=== PATIENT | male | born 1965 | race Caucasian/White ===

== ENCOUNTER 2020-10-24 17:58 | Inpatient (IN) | payer OTHER, SELFPAY ==
[~2020-10-24] VITALS: Ht 177.8 cm; Wt 106.9 kg
[2020-10-24] MEDS ORDERED: BUDESONIDE 180MCG INHALER (PULMICORT FLEXHALER) INH SCH (20:00)
[2020-10-24 20:40] VITALS: BP 129/85
[2020-10-24 20:45] VITALS: BP 129/85
[2020-10-24] MEDS ORDERED: LEVALBUTEROL 1.25 MG/0.5 ML CONCENTRATE NEB INH PRN (20:45)
[2020-10-24] MEDS ORDERED: LABETALOL 100MG TAB PO ONE (20:45)
[2020-10-24 21:22] LABS: ABG O2 SATURATION 95.8 % (95.0-99.0); ABG PARTIAL PRESSURE CO2 42.3 mmHg (35.0-45.0); ABG STANDARD HCO3 20.4 MEQ/L (22.0-26.0); ABG TOTAL CO2 22.3 MEQ/L (22.0-29.0); ABG pH (ARTERIAL) 7.314 UNITS (7.350-7.450)
[2020-10-24 22:01] VITALS: BP 94/69
[2020-10-24 22:19] LABS: BASO % 0.4 % (0.0-1.0); HEMATOCRIT 36.8 % (42.0-52.0); HEMOGLOBIN 12.7 g/dl (13.5-17.5); LYMPH # 0.2 10^3/uL (1.5-5.0); LYMPH % 2.1 % (24.0-44.0); MEAN CORPUSCULAR HEMOGLOBIN 35.1 pg (27.0-33.0); MEAN CORPUSCULAR HGB CONC 34.5 g/dl (32.0-36.5); MEAN CORPUSCULAR VOLUME 101.7 fl (80.0-96.0); MONO # 0.2 10^3/uL (0.0-0.8); NEUTROPHILS # 9.7 10^3/uL (1.5-8.5); NEUTROPHILS % 94.2 % (36.0-66.0); PLATELET COUNT, AUTOMATED 167 10^3/uL (150-450); RED BLOOD COUNT 3.62 10^6/uL (4.30-6.10); WHITE BLOOD COUNT 10.3 10^3/uL (4.0-10.0)
--- NOTE | 2020-10-24 22:21 | HPEPDOC ---
[facility] Medical History & Physical Date of Admission Oct 24, 2020 Date of Service: Oct 24, 2020 History and Physical CHIEF COMPLAINT: Shortness of breath for a week, worse in the past 4 days HISTORY OF PRESENT ILLNESS: 54-year-old chronic alcoholic with history of hypertension, COPD, not oxygen or steroid dependent, BPH, cataract surgery, chronic back pain with back surgery 15 years ago, presented to [facility] emergency room with shortness of breath for the past week, Dyspnea on exertion, unable to walk more than 30-40 feet without having to stop to take a breath, gait instability, difficulty ambulating due to fatigue and weakness, increased lower extremity edema, pleuritic chest pain, dry cough, scant white, thick sputum and chills, and 1 day history of diarrhea 4-5 times on Saturday after receiving his Covid vaccinethe day before. He denies any fever, chest pressure or tightness, lightheadedness, dizziness nausea, vomiting or constipation. He has no prior history DVT, pulmonary embolism or family history of hypercoagulable state. He denies paroxysmal nocturnal dyspnea 2-3 pillow orthopnea, weight gain, or prior history of CAD, CA or congestive heart failure. Dyspnea is worse with exertion, better when he stays still. Despite using his budesonide, he has had no relief. No prior episode of dyspnea with exertion in the past. Patient denies bright red blood per rectum, melena, black tarry stools, no recent sore throat or nonsteroidal anti-inflammatory use. He complains of dysuria without urgency or frequency and says "I think after prostatitis." In the emergency room at [facility], patient was found to be tachycardic sinus rhythm, ventricular rate of 130-140, hypertensive, blood pressure 158/128, hypoxic, requiring 100% nonrebreather, saturating 91%. CT chest showed bilateral pulmonary embolism, groundglass opacities. Coronavirus 19 was negative. Patient was wheezing and was given intravenous Solu-Medrol, intravenous Zosyn, nebulizer, Lovenox 1 mg/kg renally dosed at 100 mg subcutaneous 1 dose. Troponin negative. EKG without acute ST-T wave changes. Patient was transferred to [facility] for left lower lobe pneumonia, bilateral pulmonary embolism, acute alcohol withdrawal, last drink was yesterday, acute hypoxic respiratory failure, COPD exacerbation, and acute kidney injury with creatinine of 2. PAST MEDICAL HISTORY: chronic alcoholic with history of hypertension, COPD, not oxygen or steroid dependent, BPH, OA hip, obesity PAST SURGICAL HISTORY: cataract surgery, chronic back pain with back surgery 15 years ago SOCIAL HISTORY: Full code. Luz Maria healthcare proxy [phone]. Drinks rum every day, one pack of cigarettes since the age of 39. More than [id number] history of smoking. No recreational drug use. Currently on disability. 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 FAMILY HISTORY: Father , had cataract mother alive with glaucoma and cataracts. Sister with thyroid problems ALLERGIES: Please see below. REVIEW OF SYSTEMS: 10 point review of systems negative aside from positive findings on HPI HOME MEDICATIONS: Please see below. PHYSICAL EXAMINATION: VITAL SIGNS: See below GENERAL APPEARANCE: Obese, awake, alert, oriented 3, answering questions appropriately. Slight conversational dyspnea but able to complete sentences. No use of respiratory accessory muscles Slightly tremulous with left hand shaking and since putting a cup on the bedside tray HEENT:Face is symmetric. Tongue is midline. , No JVD, no thyromegaly. Moist mucousmembranes, no cervical lymphadenopathy. No stridor. No subcutaneous emphysema CARDIOVASCULAR: S1, S2, sinus tachycardia, no murmurs, rubs or gallops LUNGS: Diminished, prolonged expiration, bilateral wheezing, scattered crackles at bilateral bases., Egophony and Slight increase in tactile fremitus at the left base ABDOMEN: Obese, soft, nontender, nondistended, positive bowel sounds 4 quadrants. No CVA tenderness bilaterally EXTREMITIES: 2+ pitting edema to the sacrum LABORATORY DATA: See below. IMAGING: [facility] CT chest: b/l PE, ground glass tree in bud opacities. MICROBIOLOGY: Please see below. ASSESSMENT/PLAN: 54-year-old chronic alcoholic with history of hypertension, COPD, not oxygen or steroid dependent, BPH, cataract surgery, chronic back pain with back surgery 15 years ago, presented to [facility] emergency room with shortness of breath for the past week, Dyspnea on exertion, unable to walk more than 30-40 feet without having to stop to take a breath, gait instability, difficulty ambulating due to fatigue and weakness, increased lower extremity edema, pleuritic chest pain, dry cough, scant white, thick sputum and chills, and 1 day history of diarrhea 4-5 times on [place] after receiving his Covid vaccinethe day before. He denies any fever, chest pressure or tightness, lightheadedness, dizziness nausea, vomiting or constipation. He has no prior history DVT, pulmonary embolism or family history of hypercoagulable state. He denies paroxysmal nocturnal dyspnea 2-3 pillow orthopnea, weight gain, or prior history of CAD, CA or congestive heart failure. Dyspnea is worse with exertion, better when he stays still. Despite using his budesonide, he has had no relief. No prior episode of dyspnea with exertion in the past. Patient denies bright red blood per rectum, melena, black tarry stools, no recent sore throat or nonsteroidal anti-inflammatory use. He complains of dysuria without urgency or frequency and says "I think after prostatitis." In the emergency room at [facility], patient was found to be tachycardic sinus rhythm, ventricular rate of 130-140, hypertensive, blood pressure 158/128, hypoxic, requiring 100% nonrebreather, saturating 91%. CT chest showed bilateral pulmonary embolism, groundglass opacities. Coronavirus 19 was negative. Patient was wheezing and was given intravenous Solu-Medrol, intravenous Zosyn, nebulizer, Lovenox 1 mg/kg renally dosed at 100 mg subcutaneous 1 dose. Troponin negative. EKG without acute ST-T wave changes. Patient was transferred to [facility] for left lower lobe pneumonia, bilateral pulmonary embolism, acute alcohol withdrawal, last drink was yesterday, acute hypoxic respiratory failure, COPD exacerbation, and acute kidney injury with creatinine of 2. Acute hypoxic respiratory failure secondary to PE, left lower lobe pneumonia , and acute COPD exacerbation -Titrate oxygen to greater than 90%. Treat underlying pneumonia with IV Zosyn. Check MRSA screen, sputum culture and sensitivity. 2 sets of blood culture, urine Legionella, urine streptococcal antigen -Treat PE with renally dosed Lovenox 1 mg/kg subcutaneous every 12 hours, changed to every 24 due to renal insufficiency if needed -Treat COPD with IV Solu-Medrol, IV antibiotic, Xopenex due to tachycardia. Supplemental oxygen -Check cardiac markers every 6 hourly to rule out acute coronary syndrome due to cardiovascular risk factors of age, male gender, active tobacco use, hypertension, hyperlipidemia. Bilateral pulmonary embolism -Continue on Lovenox 1 mg/kg every 12 hours subcutaneously renally dosed. -Check bilateral lower extremity Dopplers, rule out DVT -If severe pulmonary hypertension is noted on 2-dimensional echocardiogram. Patient may need an embolectomy by interventional radiology -Check 2-D echo Community acquired Left lower lobe pneumonia -Check MRSA screen, urine Legionella urine streptococcal antigen. 2 sets of blood cultures. Started on Zosyn renally dosed at [facility]. De- escalate antibiotics to a quinolone or ceftriaxone, azithromycin, if clinically improving. Supplemental oxygen to keep saturations above 90%. Nebulizer treatment as needed. Monitor for persistent diarrhea Sepsis secondary to community acquired pneumonia -Started on IV antibiotics. Due to patient complaining of dysuria also check UA, urine C&S Acute COPD exacerbation -On IV Solu-Medrol, antibiotics, nebulizer treatments, supplemental oxygen Acute alcohol withdrawal / chronic alcohol abuse -Complicating care. -[facility] protocol q4hr. -Monitor for mental status changes, respiratory distress or worsening respiratory acidosis while on Ativan for alcohol withdrawal due to history of COPD with increased risks of CO2 retention Acute kidney injury in the setting of dehydration with recent diarrhea -Check renal ultrasound. Strict I's and O's, daily weights. Patient has been given intravenous fluids due to sepsis but will need to monitor worsening respi ratory distress No recurrent diarrhea Recent Diarrhea, subsided without intervention at home Hypertension -May continue on home medications, but will have to hold for systolic pressure less than 100 mmHg Dysuria -Check UA, urine C&S BPH -Resume Flomax Active tobacco abuse -Tobacco cessation counseling. Nicotine replacement therapy. Hyponatremia -Secondary to alcohol abuse. No mental status changes. . Serial basic metabolic panel. Obesity -Check lipid profile and A1c in the morning CODE STATUS: Full code Diet: 2 g sodium DVT prophylaxis: On Lovenox Healthcare proxy: Luz Maria [phone] Vital Signs Vital Signs Date Time Temp Pulse Resp B/P (MAP) Pulse Ox O2 Delivery O2 Flow Rate FiO2 10/24/20 21:16 135 129/85 10/24/20 20:40 98.4 34 87 High Flow Cannula 6.0 Laboratory Data Labs 24H Laboratory Tests 2 10/24/20 21:12: Blood Gas Bicarbonate Standard 20.4L, Arterial Blood pH 7.314L, Arterial Blood Partial Pressure CO2 42.3, Arterial Blood Partial Pressure O2 86.0, Arterial Blood Total CO2 22.3, Arterial Blood HCO3 21.0L, Arterial Blood Base Excess - 5.0L, Arterial Blood Oxygen Saturation 95.8 10/24/20 21:45: A-FIB/CHADSVASC A-FIB History Current/History of A-Fib/PAF?: No Current PO Anticoag Therapy: No Age/Risk Factor Scoring CHADSVASC: CHADSVASC Response (Comments) Value Age Risk Factor Age < 65 years old 0 Gender Risk Factor Male 0 Hx of CHF No 0 Hx of HTN Yes 1 Hx of Stroke/TIA/or VTE No 0 Hx of Diabetes No 0 Hx of Vascular Disease No 0 Total 1 Treatment Treatment ordered: NONE RACHELE ARAUJO MD Oct 24, 2020 22:03
[2020-10-24] MEDS ORDERED: DIGOXIN INJ 0.5 MG/2 ML AMP (J1160) IV STA (22:24)
[2020-10-24 22:29] LABS: INR 1.31; PROTHROMBIN TIME 16.6 SECONDS (12.5-14.3)
[2020-10-24 22:30] LABS: PARTIAL THROMBOPLASTIN TIME 45.6 SECONDS (24.2-38.5)
[2020-10-24 22:32] LABS: D-DIMER QUANT 2160.79 ng/ml (<500)
--- NOTE | 2020-10-24 22:34 | REPVR ---
PROCEDURE INFORMATION: Exam: XR Chest Exam date and time: 10/24/20 (9:40pm) Age: 54 years old Clinical indication: SOB TECHNIQUE: Imaging protocol: Portable CXR Views: 1 view COMPARISON: No relevant prior studies available FINDINGS: Lungs: No consolidation. Mildly prominent left basilar markings. Pleural spaces: Unremarkable. No pleural effusions. No pneumothorax. Heart/Mediastinum: Unremarkable. No cardiomegaly. Bones/joints: Unremarkable. IMPRESSION: No consolidation. No pleural effusions. Mildly prominent left basilar markings. A mild LLL pneumonitis cannot be excluded. Follow-up films are suggested if symptoms continue or worsen. Electronically signed by: Nelly Zamora On 10/24/2020 22:34:32 PM
[2020-10-24] MEDS ORDERED: CALCIUM GLUCONATE 1,000 MG in D5W MINI-BAG PLUS 100 ML IV ONE (22:35)
[2020-10-24 22:39] LABS: ERYTHROCYTE SEDIMENTATION RATE 88 mm/hr (0-20)
[2020-10-24] MEDS ORDERED: SYMB16INH INH (22:40)
[2020-10-24] MEDS ORDERED: PANT40TA29 PO (22:40)
[2020-10-24] MEDS ORDERED: LABE100T4 PO (22:40)
[2020-10-24] MEDS ORDERED: FLOM0.4C39 PO (22:40)
[2020-10-24] MEDS ORDERED: LOSA100T5 PO (22:40)
[2020-10-24] MEDS ORDERED: PROAAER10 INH (22:40)
[2020-10-24] MEDS: TAMSULOSIN 0.4 MG CAP PO SCH (22:55)
[2020-10-24] MEDS: HEPARIN DRIP 25,000 UNITS in IV 1 EA IV SCH (22:58)
[2020-10-24 23:03] VITALS: BP 128/87
--- NOTE | 2020-10-24 23:05 | REPVR ---
PROCEDURE INFORMATION: Exam: US Duplex Lower Extremity Veins, Bilateral Exam date and time: 10/24/20 (10:13pm) Age: 54 years old Clinical indication: Screening exam. Possible DVT. Pulmonary embolism. TECHNIQUE: Imaging protocol: Real-time duplex ultrasound of the extremities with 2-D trejo scale, color Doppler flow and spectral waveform analysis with image documentation. Complete exam focused on the bilateral lower extremity veins. COMPARISON: No relevant prior studies available FINDINGS: Right deep veins: Unremarkable. The common femoral, femoral, proximal profunda femoral and popliteal veins are patent without thrombus. Normal Doppler waveforms. Normal compressibility and/or augmentation response. Right superficial veins: Saphenofemoral junction is patent without thrombus. Left deep veins: Unremarkable. The common femoral, femoral, proximal profunda femoral and popliteal veins are patent without thrombus. Normal Doppler waveforms. Normal compressibility and/or augmentation response. Left superficial veins: Saphenofemoral junction is patent without thrombus. Soft tissues: Unremarkable. IMPRESSION: No evidence of deep vein thrombosis (both legs examined). Electronically signed by: Nelly Zamora On 10/24/2020 23:05:39 PM
--- NOTE | 2020-10-24 23:17 | REPVR ---
PROCEDURE INFORMATION: Exam: US Retroperitoneal Limited, Kidneys Exam date and time: 10/24/20 (10:06pm) Age: 54 years old Clinical indication: Renal failure. Possible hydronephrosis. TECHNIQUE: Imaging protocol: Real-time ultrasound of the retroperitoneum with image documentation. Examination was focused on the kidneys. COMPARISON: No relevant prior studies available FINDINGS: Right kidney: No stones. No hydronephrosis. Measures 12.2 cm in length. Left kidney: No stones. No hydronephrosis. Measures 13.5 cm in length. IMPRESSION: No acute findings. The kidneys are normal in size. No hydronephrosis. Electronically signed by: Nelly Zamora On 10/24/2020 23:17:20 PM
[2020-10-24 23:18] LABS: ALBUMIN 2.7 GM/DL (3.2-5.2); ALT/SGPT 74 U/L (12-78); BILIRUBIN,TOTAL 0.9 MG/DL (0.2-1.0); BLOOD UREA NITROGEN 38 MG/DL (7-18); CALCIUM LEVEL 6.8 MG/DL (8.5-10.1); CARBON DIOXIDE LEVEL 25 MEQ/L (21-32); CHLORIDE LEVEL 93 MEQ/L (98-107); CK-MB VALUE MASS 18.7 NG/ML (<3.6); CPK CREATINE PHOSPHOKINASE 859 U/L (39-308); CREATININE FOR GFR 2.06 MG/DL (0.70-1.30); GLOMERULAR FILTRATION RATE 35.9 (>56); GLUCOSE, FASTING 195 MG/DL (70-100); MAGNESIUM LEVEL 1.1 MG/DL (1.8-2.4); MB/CK RELATIVE INDEX 2.18 (< OR =4); NT-PRO BNP 928 PG/ML (<125); POTASSIUM SERUM 4.2 MEQ/L (3.5-5.1); SODIUM LEVEL 130 MEQ/L (136-145); THYROID STIMULATING HORMONE 0.563 uIU/ML (0.358-3.740); TOTAL PROTEIN 6.6 GM/DL (6.4-8.2); TROPONIN I 0.13 NG/ML (< 0.10)
[2020-10-24] MEDS ORDERED: ASPIRIN 81 MG CHEW TABLET PO ONE (23:25)
[2020-10-24 23:38] LABS: HEPATITIS B CORE ANTIBODY IGM NEGATIVE (NEGATIVE)
[2020-10-24] MEDS: MAG SULF 1GM/100ML (MAG RUN) 1 GM in IV 1 EA IV SCH (23:38)
[2020-10-24] MEDS: methylPREDNISolone 125MG 2ML VIAL IV SCH (23:38)
[2020-10-24] MEDS: LEVALBUTEROL 1.25 MG/0.5 ML CONCENTRATE NEB INH SCH (23:38)
[2020-10-24 23:39] LABS: HEPATITIS A ANTIBODY IGM NEGATIVE (NEGATIVE)
[2020-10-25] VITALS (17 sets, daily range): BP systolic 124–150; BP diastolic 63–101; O2SAT 95–96
[2020-10-25] MEDS: PIPERACILLIN/TAZOBACTAM SOD 3.375 GM in D5W MINI-BAG PLUS 50 ML IV SCH ×5 (00:39→23:24)
[2020-10-25] MEDS: MAG SULF 1GM/100ML (MAG RUN) 1 GM in IV 1 EA IV SCH (00:39)
[2020-10-25] MEDS ORDERED: LORazepam 2 MG TAB PO ONE (04:40)
[2020-10-25] MEDS ORDERED: cloNIDine 0.1MG TABLET PO ONE (04:40)
[2020-10-25 04:45] LABS: HEMATOCRIT 37.1 % (42.0-52.0); HEMOGLOBIN 12.8 g/dl (13.5-17.5); MEAN CORPUSCULAR HGB CONC 34.5 g/dl (32.0-36.5); MEAN CORPUSCULAR VOLUME 101.4 fl (80.0-96.0); PLATELET COUNT, AUTOMATED 162 10^3/uL (150-450); RED BLOOD COUNT 3.66 10^6/uL (4.30-6.10); WHITE BLOOD COUNT 7.1 10^3/uL (4.0-10.0)
[2020-10-25] MEDS: LEVALBUTEROL 1.25 MG/0.5 ML CONCENTRATE NEB INH SCH ×6 (04:45→23:27)
[2020-10-25] MEDS: methylPREDNISolone 125MG 2ML VIAL IV SCH ×4 (05:07→23:24)
[2020-10-25 05:16] LABS: HEMOGLOBIN A1c 6.3 %
[2020-10-25] MEDS ORDERED: ENOXAPARIN 100MG/1ML SYRINGE (J1650 PER 10MG) SC SCH (06:00)
[2020-10-25 06:27] LABS: CALCIUM LEVEL 7.2 MG/DL (8.5-10.1); CHOLESTEROL RISK RATIO 1.9 (<5); CK-MB VALUE MASS 16.4 NG/ML (<3.6); CREATININE FOR GFR 1.88 MG/DL (0.70-1.30); DIGOXIN LEVEL 0.9 NG/ML (0.5-2.0); GLOMERULAR FILTRATION RATE 39.9 (>56); MAGNESIUM LEVEL 1.7 MG/DL (1.8-2.4); MB/CK RELATIVE INDEX 2.18 (< OR =4); POTASSIUM SERUM 4.2 MEQ/L (3.5-5.1); TROPONIN I 0.32 NG/ML (< 0.10)
[2020-10-25] MEDS: FOLIC ACID 1 MG TAB PO SCH (08:27)
[2020-10-25] MEDS: MULTIVITAMINS/MINERALS THERAP 1 TAB PO SCH (08:27)
[2020-10-25] MEDS: VANCOMYCIN HCL 1,000 MG, VIAL MATE ADAPTER 1 EACH in NS 250 ML IV SCH ×2 (08:27→10:14)
[2020-10-25] MEDS: THIAMINE 100 MG TAB PO SCH (08:27)
[2020-10-25] MEDS: ASPIRIN 81 MG CHEW TABLET PO SCH (08:28)
[2020-10-25] MEDS: LABETALOL 100MG TAB PO SCH ×2 (08:28→20:07)
[2020-10-25 08:56] LABS: CK-MB VALUE MASS 14.4 NG/ML (<3.6); MB/CK RELATIVE INDEX 2.38 (< OR =4); TROPONIN I 0.44 NG/ML (< 0.10)
--- NOTE | 2020-10-25 09:01 | ECGEPIP ---
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
[2020-10-25 10:21] LABS: HEPATITIS B SURFACE ANTIGEN NEGATIVE (NEGATIVE)
[2020-10-25] MEDS: BUDESONIDE 0.5 MG/2 ML INHALATION SUSPENSION INH SCH ×2 (11:42→20:43)
[2020-10-25 12:12] LABS: CK-MB VALUE MASS 13.6 NG/ML (<3.6); MB/CK RELATIVE INDEX 2.4 (< OR =4); TROPONIN I 0.44 NG/ML (< 0.10)
[2020-10-25] MEDS: HEPARIN DRIP 25,000 UNITS in IV 1 EA IV SCH (14:18)
--- NOTE | 2020-10-25 14:20 | IPNPDOC ---
Text Note Date of Service The patient was seen on 10/25/20. NOTE Subjective: Patient was agitated in the morning and tachycardic, agitation res olved after the dose of Ativan. Patient denied any chest pain, but continues to have dyspnea requiring 10 L of oxygen via nasal mask Objective: GENERAL APPEARANCE: In mild distress HEENT: no scleral icterus, plus JVD, EOMI CARDIOVASCULAR: S1S2 LUNGS: Diminished lung sounds bilaterally ABDOMEN: soft & not tender w palpitation MUSCULOSKELETAL: no cyanosis, no swelling INTEGUMENT: no generalized pallor NEUROLOGICAL: cranial nerve function from 2-12 intact intact, follows commands, speech not dysarthric ASSESSMENT/PLAN: 54-year-old chronic alcoholic with history of hypertension, COPD, not oxygen or steroid dependent, BPH, cataract surgery, chronic back pain with back surgery 15 years ago, presented to [facility] emergency room with shortness of breath for the past week, Dyspnea on exertion, unable to walk more than 30-40 feet without having to stop to take a breath, gait instability, difficulty ambulating due to fatigue and weakness. In the emergency room at [facility], patient was found to be tachycardic sinus rhythm, ventricular rate of 130-140, hypertensive, blood pressure 158/128, hypoxic, requiring 100% nonrebreather, saturating 91%. CT chest showed bilateral pulmonary embolism, groundless opacities. Coronavirus 19 was negative. Patient was wheezing and was given intravenous Solu-Medrol, intravenous Zosyn, nebulizer, Lovenox 1 mg/kg renally dosed at 100 mg subcutaneous 1 dose. Acute hypoxemic respiratory failure Most likely secondary to bilateral pulmonary emboli and left lobe pneumonia superimposed with COPD exacerbation Continue oxygen supplementation via nasal mask. Oxygen requirements decrease from 40 L to 10 L Continue to monitor blood gas Continue inhalers Bilateral pulmonary embolism Most likely unprovoked Continue full dose anticoagulation with Lovenox Await echo report Community acquired pneumonia MRSA screen positive Vancomycin IV added to Zosyn IV Await Legionella urine and streptococcal antigen Await blood culture Sputum culture shows many gram-positive cocci Sepsis secondary to community-acquired pneumonia Patient had tachycardia, dyspnea and kidney failure on admission Per calcitonin significantly elevated to 8 Continue IV fluid and broad-spectrum antibiotics Will modify treatment after blood culture done Acute COPD exacerbation Secondary to community acquired pneumonia and smoking history Continue inhalers, antibiotics and supplemental oxygen Acute alcohol withdrawal / chronic alcohol abuse -Complicating care. -[facility] protocol q4hr. -Monitor for mental status changes, respiratory distress or worsening respiratory acidosis while on Ativan for alcohol withdrawal due to history of COPD with increased risks of CO2 retention Acute kidney injury in the setting of dehydration with recent diarrhea Improved after volume expansion Continue to monitor Recent Diarrhea, subsided without intervention at home Hypertension Continue home meds Blood pressures under control Dysuria UA negative Most likely secondary to BPH Follow-up with urologist in the outpatient settings BPH -Resume Flomax Active tobacco abuse -Tobacco cessation counseling. Nicotine replacement therapy. Hyponatremia Monitor BMP Elevated troponin Most likely demand superimposed with right heart strain due to bilateral pulmonary emboli First troponin 0.3 second troponin 0.4, 3d troponin 0.4 Continue aspirin, anticoagulation Patient denied any chest pain Echo didn't show any acute ST changes Await echo Appreciate/agree with ventilating expert consult Obesity Complicated Care VS,Fishbone, I+O VS, Fishbone, I+O Laboratory Tests 10/24/20 21:49 10/25/20 04:33 Vital Signs Date Time Temp Pulse Resp B/P (MAP) Pulse Ox O2 Delivery O2 Flow Rate FiO2 10/25/20 08:28 101 131/97 10/25/20 07:45 95 Nasal Cannula 10.0 10/25/20 04:00 97.8 26 I&O- Last 24 Hours up to 6 AM 10/25/20 06:00 Intake Total 515 ml Output Total 1670 ml Balance -1155 ml PARRISH MEJIA DO Oct 25, 2020 14:20
[2020-10-25] MEDS: NS 1,000 ML IV SCH ×2 (14:55→23:25)
[2020-10-25 19:22] LABS: CK-MB VALUE MASS 10.1 NG/ML (<3.6); MB/CK RELATIVE INDEX 2.35 (< OR =4); TROPONIN I 0.54 NG/ML (< 0.10)
[2020-10-25] MEDS: TAMSULOSIN 0.4 MG CAP PO SCH (20:06)
[2020-10-25] MEDS ORDERED: VANCOMYCIN HCL 1,000 MG, VIAL MATE ADAPTER 1 EACH in NS 250 ML IV SCH (21:00)
[2020-10-25] MEDS ORDERED: ACETAMINOPHEN TAB 650MG DOSE (2X325MG) PO PRN (23:35)
[2020-10-25] MEDS ORDERED: LOPERAMIDE 2 MG CAPLET PO ONE (23:35)
[2020-10-25] MEDS: LORazepam 2 MG TAB PO PRN (23:47)
[2020-10-26] VITALS (12 sets, daily range): BP systolic 110–166; BP diastolic 59–107
[2020-10-26] MEDS: LEVALBUTEROL 1.25 MG/0.5 ML CONCENTRATE NEB INH SCH ×5 (03:27→20:10)
[2020-10-26] MEDS: PIPERACILLIN/TAZOBACTAM SOD 3.375 GM in D5W MINI-BAG PLUS 50 ML IV SCH ×4 (05:04→23:57)
[2020-10-26] MEDS: methylPREDNISolone 125MG 2ML VIAL IV SCH (05:04)
[2020-10-26] MEDS: HEPARIN DRIP 25,000 UNITS in IV 1 EA IV SCH ×2 (05:05→21:46)
[2020-10-26 07:59] LABS: HEMATOCRIT 35.5 % (42.0-52.0); HEMOGLOBIN 12.3 g/dl (13.5-17.5); MEAN CORPUSCULAR HEMOGLOBIN 35.4 pg (27.0-33.0); MEAN CORPUSCULAR HGB CONC 34.6 g/dl (32.0-36.5); MEAN CORPUSCULAR VOLUME 102.3 fl (80.0-96.0); PLATELET COUNT, AUTOMATED 173 10^3/uL (150-450); RED BLOOD COUNT 3.47 10^6/uL (4.30-6.10); WHITE BLOOD COUNT 9.4 10^3/uL (4.0-10.0)
[2020-10-26] MEDS: BUDESONIDE 0.5 MG/2 ML INHALATION SUSPENSION INH SCH ×2 (08:04→20:10)
[2020-10-26] MEDS: HEPARIN SOD (PORCINE) 5000UNITS/ML 1ML VIAL/SYRINGE IV PRN (08:36)
[2020-10-26] MEDS: CARVedilol 12.5 MG TAB PO SCH ×2 (08:45→20:48)
[2020-10-26] MEDS: MULTIVITAMINS/MINERALS THERAP 1 TAB PO SCH (08:45)
[2020-10-26] MEDS: THIAMINE 100 MG TAB PO SCH (08:46)
[2020-10-26] MEDS: FOLIC ACID 1 MG TAB PO SCH (08:46)
[2020-10-26 09:09] LABS: ALBUMIN 2.8 GM/DL (3.2-5.2); BILIRUBIN,DIRECT 0.3 MG/DL (0.0-0.2); BILIRUBIN,TOTAL 0.6 MG/DL (0.2-1.0); CALCIUM LEVEL 6.8 MG/DL (8.5-10.1); CREATININE FOR GFR 1.89 MG/DL (0.70-1.30); GLOMERULAR FILTRATION RATE 39.6 (>56); MAGNESIUM LEVEL 1.1 MG/DL (1.8-2.4); POTASSIUM SERUM 3.7 MEQ/L (3.5-5.1); TOTAL PROTEIN 6.3 GM/DL (6.4-8.2)
--- NOTE | 2020-10-26 09:31 | IPN ---
PROGRESS NOTE DATE: 10/26/2020 SUBJECTIVE: Mr. Carter feels about the same this morning as he did last night. He is still very short of breath with minimal activity. There has not been any deterioration but neither was there any improvement. He denies any chest discomfort. He did have a loose bowel movement this morning and he had several loose bowel movements yesterday. Yesterday, I was not able to find the actual report of CT angiography from [place], but this morning I was able to localize it in records and it turns out that the description from the radiologist indicates that the diagnosis of pulmonary embolism is not definite. He points out that the study was of poor quality and he said that he cannot rule out this diagnosis but overall is not definitely convinced that it is actually present. OBJECTIVE: Vital signs this morning: Blood pressure 143/72, heart rate has been from 90s to 100-teens. He is afebrile. Saturation is 94% on six liters of oxygen. Fluid balance yesterday was about 1800 positive. Weight is recorded as 112 kg. He is alert and oriented, and appropriate. His JVP is high. Lungs are clear, though I do not appreciate any wheezing, crackles or rhonchi. Heart exam is limited by his obesity but no obvious gallop, rub or murmur is noted. Abdomen is protuberant but soft. No guarding. Extremities are free of edema. He continues to have a minimal fine tremor. LABORATORY: CBC: WBC count 94, hemoglobin 12.3, hematocrit 35.5, platelet count 173,000. Basic metabolic panel has not been drawn this morning yet. EKG reveals sinus rhythm with T wave abnormalities laterally and precordially. No significant evolution since yesterday's EKG. ASSESSMENT AND PLAN: Mr. Carter is a 54-year-old man who has no prior history of cardiac disease who presented to [facility] approximately 7-10 days after vaccination for COVID that initially started causing severe diarrhea that was later followed by progressive dyspnea. The initial working diagnosis was pulmonary embolism. He seems to have responded favorably to anticoagulation but his progression has since stalled. An echocardiogram performed in our facility is a poor quality study on account of his obesity but it is indicative of left ventricular (LV) dysfunction, high central venous pressure and pulmonary hypertension. I have to assume that the diagnosis of pulmonary embolism is not definite and even though I agree with continuation of anticoagulation, I do believe that it is likely that there is complement of congestive heart failure in his presentation. Unfortunately, his blood work this morning is not available yet, so I will wait before deciding how to address left ventricular (LV) dysfunction. Provided there has been improvement in renal function, I believe we can put him back on his ARB. On the other hand, if the renal function remains compromised, we will go with hydralazine and isosorbide. He is on a relatively high dose of labetalol, which is a beta sandra that has not been shown to be beneficial in people with left ventricular (LV) dysfunction and consequently I am going to replace it with carvedilol, I start with 12.5 mg twice a day and we can adjust the dose accordingly depending on his response. He is already on aspirin and fully anticoagulated. His admission lipid panel was excellent and his liver function tests were elevated probably as a consequence of his alcohol consumption and consequently I do not think that it is necessary to put him on a statin. As far as the management of diarrhea and possible pneumonia concern stay with his primary team. Certainly, Mr. Carter is a complicated patient with numerous probably unrelated problems. I am still struggling to find the unifying diagnosis that would explain the sequel of events from vaccination to diarrhea to severe dyspnea and left ventricular (LV) dysfunction and possible pulmonary embolism.
[2020-10-26] MEDS ORDERED: MAG SULF 1GM/100ML (MAG RUN) 1 GM in IV 1 EA IV SCH (09:45)
--- NOTE | 2020-10-26 09:58 | ECGEPIP ---
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
[2020-10-26] MEDS ORDERED: POTASSIUM CHLORIDE 10 MEQ SR TABLET PO ONE (10:00)
[2020-10-26] MEDS ORDERED: MAG SULF 1GM/100ML (MAG RUN) 1 GM in IV 1 EA IV ONE (10:00)
[2020-10-26] MEDS ORDERED: FUROSEMIDE 100MG/10ML VIAL (J1940) IV ONE (10:00)
[2020-10-26] MEDS: ISOSORBIDE DIN (ISORDIL) 10 MG TAB PO SCH ×3 (10:05→21:45)
[2020-10-26] MEDS: ASPIRIN 81 MG CHEW TABLET PO SCH (10:05)
[2020-10-26] MEDS: **hydrALAZINE** 10 MG TAB PO SCH ×3 (10:06→21:44)
--- NOTE | 2020-10-26 10:14 | CR ---
CONSULTATION DATE: 10/25/2020 REFERRING PHYSICIAN: Dr. Hickey INDICATION FOR CONSULTATION: Pulmonary embolism and elevated troponin. HISTORY OF PRESENT ILLNESS: Mr. Carter is previously unknown to me. He is a 54-year-old male who has a history of hypertension, chronic obstructive pulmonary disease, and alcoholism who presented originally to [facility] yesterday with approximately 4 or 5 day history of severe dyspnea. He reported that he was at his baseline, but then approximately 10 days prior to admission he had a COVID vaccination. He said after he got the vaccination, the following day he got severe diarrhea and became essentially bedridden. It took only another day or two when he started to be progressively more and more short of breath, but then eventually came to the hospital when he was not able to walk more than a few feet. On presentation he was found to be markedly tachycardic with a heart rate of 150 beats per minute and hypertensive and hypoxic with saturation in the 60's on room air. He improved to around 90% saturation on non-rebreather oxygen. CT was performed and revealed evidence for bilateral pulmonary emboli. He tested negative for COVID. He was subsequently transferred to our facility. He has been anticoagulated. He initially received Lovenox but currently has been on Heparin. He states that he is slowly improving. He is still on 6 liters of oxygen but saturation is at least in the mid 90's and he feels subjectively much improved. The patient denies any history of cardiovascular disease but on further questioning admits that he underwent a recent echocardiogram in [place] that apparently revealed some abnormalities that he does not quite understand of what kind. He was referred to a journeyman millwright in [place], who gave him a prescription for Labetalol. He believes that this was about 2 or 3 months ago. While he was taking this medication, he felt much improved. He apparently was scheduled to have additional testing but it has not been performed yet. He is not clear what was the nature of the planned evaluation. The patient denies any history of coronary artery disease or congestive heart failure. PAST MEDICAL HISTORY: The patient's past medical history is significant for: 1. Chronic obstructive pulmonary disease - The patient has been a two pack smoker since his age of in the 40's, but more recently cut down to about one pack a day. 2. Benign prostatic hypertrophy. 3. Degenerative joint disease. 4. Chronic back problems. 5. Obesity. 6. Alcoholism. He admits to drinking one bottle of rum daily as of the last several weeks. PAST SURGICAL HISTORY: 1. Cataracts. 2. Back surgery. SOCIAL HISTORY: The patient is . 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 He smokes currently about one pack a day. He used to smoke more than that but only since the age of about 39. He drinks heavily and has been for many months. FAMILY HISTORY: He believes that his father as a consequence of chronic obstructive pulmonary disease or related to exposure to dust in mines. He denies any further relatives with cardiovascular problems. He is the father of three children and to the best of his recollection, they do not have any serious diseases. OUTPATIENT MEDICATIONS: 1. Albuterol as needed. 2. Symbicort as needed. 3. Labetalol 100 mg twice daily. 4. Losartan/Hydrochlorothiazide 100/25 mg daily. 5. Pantoprazole 40 mg daily. 6. Flomax 0.4 mg at night. REVIEW OF SYSTEMS: The patient denies any recent chest discomfort, palpitations, dizziness, near syncope. At his baseline, he is quite short of breath with activity but typically the limiting factor is back pain. He does admit that he has gained a considerable amount of weight in the last years. He denies any history of bleeding. He denies any history of genitourinary problems that he was aware of with the exception of benign prostatic hypertrophy. He typically does not get peripheral edema. He does admit that at baseline he frequently has tremor of his hands. The rest of the review of systems is negative. PHYSICAL EXAMINATION: GENERAL APPEARANCE: The patient is a middle aged obese man who appears to be in mild distress while talking but comfortable when he just rests in bed. He appears older than his current age. VITAL SIGNS: Blood pressure is 138/78, heart rate around 100 beats per minute, sinus tachycardia. He is afebrile. Saturation currently 93-96% on 5-6 liters of oxygen by nasal cannula. The weight was recorded as 109.2 kg today. NECK: JVP is high. LUNGS: Clear though I do not appreciate any crackles, wheezing or rhonchi. HEART: Rather distant heart sounds considering to his body habitus. But I do not appreciate any distinct murmurs, rubs or gallops. ABDOMEN: Protuberant but soft. I do not appreciate shifting dullness. I am unable to assess the size of the liver and spleen. EXTREMITIES: Free of edema. There palpable peripheral pulses. No trophic defects. NEUROLOGICAL: Alert and oriented and answers questions appropriately even though he is not familiar with much of the details of his history. He certainly can provide useful information. I do not appreciate any focal defects. There is a fine tremor of his hands. LABORATORY STUDIES: CBC reveals hemoglobin 12.8, hematocrit 37.1, platelet count 162 and white blood cell count 7.1. Basic metabolic panel this morning - sodium 132, potassium 4.2, BUN 39, creatinine 1.9, glucose 198, hemoglobin A1c was 6.3, magnesium 1.7. He had numerous cardiac enzymes drawn. Troponin-I started at 0.13 and has been steadily climbing since. At 18:19 today it is 0.54. His CK was the highest on admission at 859 and has been coming down since. CKMB is mildly elevated but is trending down also. His lipid panel reveals a total cholesterol 171, LDL 66, HDL 90 and triglycerides 77. NT-pro BNP was 958. He received Digoxin and the level this morning was 0.9. SAMANTHA is pending. PTT has been in the therapeutic range. The patient tested negative for hepatitis. MRSA was detected on his skin. He was sent for some basic hypercoagulable genetics that are pending. While in [place] he tested negative for COVID. CURRENT MEDICATIONS: He received: 1. Vancomycin. 2. Pulmicort. 3. Labetalol 100 twice daily. 4. Aspirin 81 daily. 5. Thiamine. 6. Folic Acid. 7. Methylprednisolone. 8. Piperacillin with Tazobactam. 9. Tamsulosin. 10. Xopenex. 11. Heparin. IMAGING DATA: Unfortunately I cannot visualize it independently but chest x-ray was reported as indicating no congestive heart failure, no distinct infiltrate even though there was suspicion for pneumonitis in the left lower lobe. Heart was not enlarged. Vascular ultrasound revealed no evidence for DVT in the lower extremities and renal ultrasound did not reveal any evidence for obstruction. The patient had an electrocardiogram that revealed sinus rhythm with T-wave inversions in the lateral leads and also to some degree in the septal leads. ASSESSMENT AND PLAN: Mr. Carter is a 54-year-old man who has a history of hypertension, alcoholism and smoking, who presented with approximately a 10-day history of illness that started originally as a diarrhea the day after vaccination for COVID-19 and then two or three days later was followed by severe dyspnea. On presentation to the [facility] in [place] he was diagnosed with a pulmonary embolism based on CT angiography (I could not find the report). He was started on anticoagulation and transferred to our facility. Simultaneously, he was started on antibiotics because there was suspicion for possible pneumonia. There is a mild troponin elevation but at no point he had any chest discomfort. He remains profoundly hypoxic even though the degree of oxygen demand is slowly decreasing. I reviewed the echocardiogram that was performed last night and interpreted by Dr. Schaffer. The official report is still not available, but based on my visualization, the patient has a considerable degree of ventricular systolic dysfunction. No significant valvular disease, elevated central venous pressure and no accurate determination of pulmonary artery pressure was possible. Consequently, I think we are facing a very difficult situation where the patient has a combination of congestive heart failure, renal insufficiency and pulmonary embolism and very likely underlying lung disease that all combine into worsening dyspnea. At this point I am encouraged by the fact that he is clinically improving. He is receiving anticoagulation and Aspirin which should remain the mainstay of treatment. I will see how the situation evolves overnight, but I believe that tomorrow hopefully we will be able to reintroduce some of the medications for congestive heart failure. Specifically, he should get some form of vasodilators. At baseline he was on a combination of Losartan and Hydrochlorothiazide but with his renal dysfunction, it is probably not bronson to introduce them at this point. But he might be able to tolerate alternative vasodilators as a form of Hydralazine/Isosorbide. As far as the mild troponin elevation is concerned, it is difficult to interpret what is the actual cause. It certainly could be a sign of right ventricular strain but also the degree of the dysfunction, I wonder whether it is a consequence of congestive heart failure. I would continue following the trend together with serial EKGs. At some point he will undoubtedly need coronary angiography, but I do not think that it is something that needs or should be performed emergently until the pulmonary embolism is under better control. The patient has an excellent lipid and with a history of alcoholism and abnormal LFTs, I do not believe that it is bronson to put him on statins at least for a few days. I had a weston discussion with the patient about his heavy alcohol consumption and smoking. He tells me that he believes that he will be able to quit on his own. He apparently quit last year for a couple of months when he was treated for C-diff and was taking Flagyl. To the best of his recollection, he did not have any obvious withdrawal symptoms. I will follow patient with you. NICOLE
--- NOTE | 2020-10-26 10:43 | IPNPDOC ---
Text Note Date of Service The patient was seen on 10/26/20. NOTE Subjective: Patient stated that he has been having diarrhea overnight, however according to nurses report he had 1 bowel movement in the morning semi solid. Patient continues to be short of breath Objective: GENERAL APPEARANCE: In mild distress HEENT: no scleral icterus, plus JVD, EOMI CARDIOVASCULAR: S1S2, tachycardic with heart rate 110 LUNGS: Diminished lung sounds bilaterally ABDOMEN: soft & not tender w palpitation MUSCULOSKELETAL: no cyanosis, no swelling INTEGUMENT: no generalized pallor NEUROLOGICAL: cranial nerve function from 2-12 intact intact, follows commands, speech not dysarthric ASSESSMENT/PLAN: 54-year-old chronic alcoholic with history of hypertension, COPD, not oxygen or steroid dependent, BPH, cataract surgery, chronic back pain with back surgery 15 years ago, presented to [facility] emergency room with shortness of breath for the past week, Dyspnea on exertion, unable to walk more than 30-40 feet without having to stop to take a breath, gait instability, difficulty ambulating due to fatigue and weakness. In the emergency room at [facility], patient was found to be tachycardic sinus rhythm, ventricular rate of 130-140, hypertensive, blood pressure 158/128, hypoxic, requiring 100% nonrebreather, saturating 91%. CT chest showed bilateral pulmonary embolism, groundless opacities. Coronavirus 19 was negative. Patient was wheezing and was given intravenous Solu-Medrol, intravenous Zosyn, nebulizer, Lovenox 1 mg/kg renally dosed at 100 mg subcutaneous 1 dose. Acute hypoxemic respiratory failure Most likely secondary to bilateral pulmonary emboli and left lobe pneumonia superimposed with COPD exacerbation Continue oxygen supplementation via nasal mask. Oxygen requirements decrease to 6 L Continue to monitor blood gas Continue inhalers Continue prednisone 40 mg by mouth Bilateral pulmonary embolism Most likely unprovoked Continue full dose anticoagulation with heparin I discussed with Dr. Scott report from the [facility], there is question for bilateral pulmonary emboli. Preliminary report of echo showed low ejection fraction of 30% left ventricular (LV) dysfunction, high central venous pressure and pulmonary hypertension. Because of poor kidney function we will proceed with VQ scan. Community acquired pneumonia MRSA screen positive Vancomycin IV added to Zosyn IV Await Legionella urine and streptococcal antigen blood culture negative Sputum culture shows many gram-positive cocci Sepsis secondary to community-acquired pneumonia Patient had tachycardia, dyspnea and kidney failure on admission Per calcitonin significantly elevated to 8 Continue broad-spectrum antibiotics Acute systolic CHF/alcoholic cardiomyopathy I discussed with Dr. Scott preliminary report of echo. Patient developed low ejection fraction of 30% most likely secondary to alcohol abuse Cardiology team started carvedilol, isosorbide, hydralazine. DC labetalol Patient received Lasix IV DC fluid Acute COPD exacerbation Secondary to community acquired pneumonia and smoking history Continue inhalers, antibiotics and supplemental oxygen Acute alcohol withdrawal / chronic alcohol abuse -Complicating care. -CIWA protocol q4hr. -Monitor for mental status changes, respiratory distress or worsening respirator y acidosis while on Ativan for alcohol withdrawal due to history of COPD with increased risks of CO2 retention Acute kidney injury in the setting of dehydration with recent diarrhea Improved after volume expansion Continue to monitor Recent Diarrhea, subsided without intervention at home Patient stated that he developed multiple subsequent of diarrhea of the second vaccination of Covid 19. Patient has a previous history of C. difficile infection a few years ago Patient had 1 bowel movement in the morning, semisolid stool No bowel movement overnight Hypertension Continue home meds Blood pressures under control Dysuria UA negative Most likely secondary to BPH Follow-up with urologist in the outpatient settings BPH -Resume Flomax Active tobacco abuse -Tobacco cessation counseling. Nicotine replacement therapy. Hyponatremia Monitor BMP Patient currently on fluid restriction Elevated troponin Most likely demand superimposed with right heart strain due to bilateral pulmonary emboli First troponin 0.3 second troponin 0.4, 3d troponin 0.4, 4 trop 05 Continue aspirin, anticoagulation Patient denied any chest pain EKG didn't show any acute ST changes Continue to monitor troponin Obesity Complicated Care VS,Rory, I+O VS, Rory, I+O Laboratory Tests 10/26/20 07:48 Vital Signs Date Time Temp Pulse Resp B/P (MAP) Pulse Ox O2 Delivery O2 Flow Rate FiO2 10/26/20 08:45 113 166/77 10/26/20 08:00 6.0 10/26/20 08:00 99.8 24 92 High Flow Cannula I&O- Last 24 Hours up to 6 AM 10/26/20 06:00 Intake Total 6255 ml Output Total 2550 ml Balance 3705 ml PARRISH MEJIA DO Oct 26, 2020 10:43
--- NOTE | 2020-10-26 10:49 | ECHO ---
DATE OF PROCEDURE: 10/24/2020 Age: 54 Gender: Male Height: 70 inches Weight: 244 pounds Body Surface Area: 2.27 m2 PATIENT LOCATION: Inpatient ICU Room 3205. REFERRING PHYSICIAN: Sandrita Rivas MD. INDICATION: Pulmonary embolism. Abnormal EKG. MEASUREMENTS: 2D Measurements: RV 3.8 cm LV 5.9 cm Septum 1.0 cm Posterior wall 1.0 cm Aortic Root 3.6 cm LA 4.5 cm LVEF 45% Doppler Measurements: AV 1.39 m/s LVOT - 0.8 m/s MV 93, A 87, E/A ratio 1.1 Early mitral deceleration time 188 msec E prime medial 6.4, A prime medial 10.8, E prime lateral 6.9 Average E/E prime ratio 14/PCWP 19.2 mmHg PV - 0.7 m/s Pulmonary artery acceleration time 100 msec PASP 37 mmHg IVC 2.2 cm with adequate collapse? COMMENTS: Sinus tachycardia without intraventricular conduction disturbance. A technically challenging study in light of the patient's body habitus, but some diagnostically useful information was still obtained. M-mode and 2-dimensional echocardiography was performed with pulse, continuous wave, color flow, and tissue Doppler studies. Mildly dilated left ventricle with normal wall thickness and localized septal hypo to akinesis but other left ventricular wall segments moved normally. At least mild impairment of global resting systolic function. At least mildly dilated left atrium with grade 2 LV diastolic dysfunction, and current estimated mean left atrial pressure was mildly increased. Normal right heart chambers sizes and motion with Doppler evidence of mild pulmonary hypertension. IVC size upper limits of normal with suspected adequate respiratory collapse against a significantly elevated central venous pressure. Normal aortic dimensions. Normal appearing and functioning valvular structures. No pericardial effusion or apparent intracardiac mass. A preliminary report of this study was sent as a text to the ordering physician. PLAINVIEW HOSPITALShawn
[2020-10-26 11:26] LABS: TROPONIN I 0.46 NG/ML (< 0.10)
[2020-10-26] MEDS: predniSONE 20 MG TAB PO SCH (12:05)
[2020-10-26] MEDS: VANCOMYCIN HCL 1,000 MG, VIAL MATE ADAPTER 1 EACH in NS 250 ML IV SCH (12:53)
[2020-10-26 13:11] LABS: ANTI DOUBLE STRAND-DNA AB 3 IU/mL (0-9); ANTINUCLEAR ANTIBODIES DIRECT Positive (Negative); RNP ANTIBODIES 0.6 AI (0.0-0.9); SJOGREN'S ANTI SS-A <0.2 AI (0.0-0.9); SJOGREN'S ANTI SS-B 3.8 AI (0.0-0.9); SMITH ANTIBODIES <0.2 AI (0.0-0.9)
[2020-10-26] MEDS ORDERED: LOPERAMIDE 2 MG CAPLET PO ONE (14:00)
--- NOTE | 2020-10-26 14:53 | REP ---
INDICATION: pulmonary emboli. COMPARISON: Chest radiograph 10/24/2020. TECHNIQUE/RADIOTRACER AND DOSE: Following the intravenous administration of 5.5 mCi technetium 99 M tagged MAA, and the inhalation of 1.0 mCi technetium 99 M DTPA aerosol, multiple images of the lung barahona are obtained in various projections. FINDINGS: There is a small matching ventilation and perfusion defect in the right lung base. No areas of V/Q mismatch are seen. IMPRESSION: Low probability of pulmonary embolism. <Electronically signed by Cedric Montes > 10/26/20 [id number]
[2020-10-26] MEDS: MAGNESIUM GLUCONATE 500 MG TAB PO SCH ×2 (15:03→20:47)
[2020-10-26 16:20] LABS: BILIRUBIN,TOTAL 0.5 MG/DL (0.2-1.0); CALCIUM LEVEL 7.1 MG/DL (8.5-10.1); CREATININE FOR GFR 1.88 MG/DL (0.70-1.30); GLOMERULAR FILTRATION RATE 39.9 (>56); POTASSIUM SERUM 4.2 MEQ/L (3.5-5.1); TOTAL PROTEIN 6.7 GM/DL (6.4-8.2)
[2020-10-26] MEDS: LORazepam 2 MG TAB PO PRN (18:06)
[2020-10-26] MEDS: LACTOBACILLUS ACIDOPHILUS CAP (BACID) PO SCH (18:06)
[2020-10-26] MEDS: TAMSULOSIN 0.4 MG CAP PO SCH (20:47)
[2020-10-27] VITALS (9 sets, daily range): BP systolic 116–160; BP diastolic 61–90
[2020-10-27] MEDS: LEVALBUTEROL 1.25 MG/0.5 ML CONCENTRATE NEB INH SCH ×7 (00:09→23:17)
[2020-10-27] MEDS: LORazepam 2 MG TAB PO PRN ×6 (00:17→21:03)
[2020-10-27] MEDS: ISOSORBIDE DIN (ISORDIL) 10 MG TAB PO SCH ×3 (06:28→22:19)
[2020-10-27] MEDS: PIPERACILLIN/TAZOBACTAM SOD 3.375 GM in D5W MINI-BAG PLUS 50 ML IV SCH ×3 (06:28→17:04)
[2020-10-27] MEDS: **hydrALAZINE** 10 MG TAB PO SCH ×3 (06:29→22:19)
[2020-10-27 06:30] LABS: HEMATOCRIT 34.5 % (42.0-52.0); HEMOGLOBIN 12.1 g/dl (13.5-17.5); MEAN CORPUSCULAR HEMOGLOBIN 35.5 pg (27.0-33.0); MEAN CORPUSCULAR HGB CONC 35.1 g/dl (32.0-36.5); MEAN CORPUSCULAR VOLUME 101.2 fl (80.0-96.0); PLATELET COUNT, AUTOMATED 207 10^3/uL (150-450); RED BLOOD COUNT 3.41 10^6/uL (4.30-6.10); WHITE BLOOD COUNT 9.1 10^3/uL (4.0-10.0)
[2020-10-27 06:52] LABS: CALCIUM LEVEL 6.8 MG/DL (8.5-10.1); CREATININE FOR GFR 1.7 MG/DL (0.70-1.30); GLOMERULAR FILTRATION RATE 44.8 (>56); MAGNESIUM LEVEL 1.3 MG/DL (1.8-2.4); POTASSIUM SERUM 3.7 MEQ/L (3.5-5.1)
--- NOTE | 2020-10-27 07:16 | ECGEPIP ---
[facility] Test Date: 2020-10-27 Pat Name: TITA HENNING Department: Room: [place] [address] Gender: Male [employer]: LISSETT : 1965 Requested By: Damion Scott Order Number: [id number] Reading MD: Melissa Negrete Measurements Intervals [place] Rate: 91 P: 57 IA: 130 QRS: 42 QRSD: 80 T: 130 QT: 442 QTc: 543 Interpretive Statements Normal sinus rhythm PRWP ST & T wave abnormality, consider ANTERIORLATERAL ischemia Prolonged QT AGAIN COMPARED TO 10/26/20 STT WAVE ABN MORE MARKED Electronically Signed on 10-27-2020 7:15:55 EST by Melissa Negrete
[2020-10-27] MEDS: BUDESONIDE 0.5 MG/2 ML INHALATION SUSPENSION INH SCH ×2 (07:48→19:49)
[2020-10-27] MEDS ORDERED: POTASSIUM CHLORIDE 10 MEQ SR TABLET PO ONE (08:00)
[2020-10-27] MEDS ORDERED: MAG SULF 1GM/100ML (MAG RUN) 1 GM in IV 1 EA IV ONE ×2 (08:00→09:00)
[2020-10-27] MEDS: HEPARIN SOD (PORCINE) 5000UNITS/ML 1ML VIAL/SYRINGE IV PRN (08:02)
[2020-10-27] MEDS: MAGNESIUM GLUCONATE 500 MG TAB PO SCH ×2 (08:06→21:02)
[2020-10-27] MEDS: THIAMINE 100 MG TAB PO SCH (08:06)
[2020-10-27] MEDS: ASPIRIN 81 MG CHEW TABLET PO SCH (08:06)
[2020-10-27] MEDS: FOLIC ACID 1 MG TAB PO SCH (08:06)
[2020-10-27] MEDS: VANCOMYCIN HCL 1,000 MG, VIAL MATE ADAPTER 1 EACH in NS 250 ML IV SCH (08:06)
[2020-10-27] MEDS: predniSONE 20 MG TAB PO SCH (08:06)
[2020-10-27] MEDS: LACTOBACILLUS ACIDOPHILUS CAP (BACID) PO SCH ×2 (08:06→17:03)
[2020-10-27] MEDS: MULTIVITAMINS/MINERALS THERAP 1 TAB PO SCH (08:13)
[2020-10-27] MEDS: CARVedilol 12.5 MG TAB PO SCH ×2 (08:15→20:32)
--- NOTE | 2020-10-27 09:56 | REP ---
INDICATION: PE, [facility] from [facility]. COMPARISON: None. TECHNIQUE: Outside examination performed on 10/24/2020 using presumed pulmonary embolus technique. Examination made available for reinterpretation on 10/27/2020 FINDINGS: Evaluation is somewhat limited by motion artifact. With respect to pulmonary emboli, small scattered 3rd order pulmonary emboli primarily suggested to the bilateral lower lobes and lingula cannot be excluded as filling defects are identified but may be related to artifact from respiratory motion. Evaluation of the lung barahona demonstrates a diffuse reticulonodular interstitial pattern along with areas of consolidation in the lingula and right middle lobe and trace left basilar atelectasis. No pleural effusion. No pneumothorax. Tracheobronchial tree is patent. Further evaluation of the mediastinum demonstrates minimal atherosclerotic changes. Thoracic aorta is without aneurysm or dissection. No cardiomegaly or pericardial effusion. No significant adenopathy noted. Surrounding musculoskeletal structures demonstrate presumed age-related degenerative changes. Limited upper abdomen demonstrates hepatosteatosis and normal bilateral adrenal glands. IMPRESSION: 1. Cannot exclude small 3rd order pulmonary emboli to scattered lower lobe and lingular pulmonary arterial branches. Evaluation is limited by motion artifact. 2. Findings suggest pneumonitis and multifocal pneumonia. Correlation with physical examination and history is required. <Electronically signed by Lucius Almazan > 10/27/20 [id number]
[2020-10-27 11:03] LABS: DRVV SCREEN 62.5 SEC
[2020-10-27 11:06] LABS: PTT LUPUS TYPE ANTICOAG SCREEN 1.5 (0-1.2)
[2020-10-27 11:13] LABS: DRVV CONFIRM 51.4 SEC; LUPUS CONFIRM RATIO 1.4
[2020-10-27 11:14] LABS: NORMALIZED RATIO 1.07 (0.00-1.20)
--- NOTE | 2020-10-27 11:14 | IPNPDOC ---
Text Note Date of Service The patient was seen on 10/27/20. NOTE Subjective: Patient had up to 5 bowel movements overnight with semisolid stool. His breathing requirements improved, he needs 4 L of oxygen. Objective: GENERAL APPEARANCE: In mild distress HEENT: no scleral icterus, plus JVD, EOMI CARDIOVASCULAR: S1S2, tachycardic with heart rate 110 LUNGS: Diminished lung sounds bilaterally ABDOMEN: soft & not tender w palpitation MUSCULOSKELETAL: no cyanosis, no swelling INTEGUMENT: no generalized pallor NEUROLOGICAL: cranial nerve function from 2-12 intact intact, follows commands, speech not dysarthric ASSESSMENT/PLAN: 54-year-old chronic alcoholic with history of hypertension, COPD, not oxygen or steroid dependent, BPH, cataract surgery, chronic back pain with back surgery 15 years ago, presented to [facility] emergency room with shortness of breath for the past week, Dyspnea on exertion, unable to walk more than 30-40 feet without having to stop to take a breath, gait instability, difficulty ambulating due to fatigue and weakness. In the emergency room at [facility], patient was found to be tachycardic sinus rhythm, ventricular rate of 130-140, hypertensive, blood pressure 158/128, hypoxic, requiring 100% nonrebreather, saturating 91%. CT chest showed bilateral pulmonary embolism, groundless opacities. Coronavirus 19 was negative. Patient was wheezing and was given intravenous Solu-Medrol, intravenous Zosyn, nebulizer, Lovenox 1 mg/kg renally dosed at 100 mg subcutaneous 1 dose. Acute hypoxemic respiratory failure Most likely secondary to bilateral pulmonary emboli and left lobe pneumonia sup erimposed with COPD exacerbation Continue oxygen supplementation via nasal mask. Oxygen requirements decrease to 4 L Continue to monitor blood gas Continue inhalers Continue prednisone 40 mg by mouth Bilateral pulmonary embolism Most likely unprovoked Continue full dose anticoagulation with heparin I discussed with Dr. Scott report from the [facility], there is question for bilateral pulmonary emboli. Preliminary report of echo showed low ejection fraction of 30% left ventricular (LV) dysfunction, high central venous pressure and pulmonary hypertension. Our radiology team reviewed CT scan: Cannot exclude small 3rd order pulmonary emboli to scattered lower lobe and lingular pulmonary arterial branches. Evaluation is limited by motion artifact. 2. Findings suggest pneumonitis and multifocal pneumonia. VQ scan showed low probability for PE Due to equivocal result we continue therapy with full anticoagulation Community acquired pneumonia MRSA screen positive Vancomycin IV added to Zosyn IV Await Legionella urine and streptococcal antigen blood culture negative Sputum culture shows many gram-positive cocci Sepsis secondary to community-acquired pneumonia Patient had tachycardia, dyspnea and kidney failure on admission Per calcitonin significantly elevated to 8 Continue broad-spectrum antibiotics Acute systolic CHF/alcoholic cardiomyopathy I discussed with Dr. Scott preliminary report of echo. Patient developed low ejection fraction of 30% most likely secondary to alcohol abuse Cardiology team started carvedilol, isosorbide, hydralazine. DC labetalol Continue Lasix IV Echo report today showed Mildly dilated left ventricle with normal wall thickness and localized septal hypo to akinesis but other left ventricular wall segments moved normally. At least mild impairment of global resting systolic function. At least mildly dilated left atrium with grade 2 LV diastolic dysfunction, and current estimated mean left atrial pressure was mildly increased. Normal right heart chambers sizes and motion with Doppler evidence of mild pulmonary hypertension. IVC size upper limits of normal with suspected adequate respiratory collapse against a significantly elevated central venous pressure. EF45% Discuss the Echo result with Dr Scott, he believes that ejection fraction less than 40% patient most likely will need cardiac catheterization after discharge. Acute COPD exacerbation Secondary to community acquired pneumonia and smoking history Continue inhalers, antibiotics and supplemental oxygen Acute alcohol withdrawal / chronic alcohol abuse -Complicating care. -CIWA protocol q4hr. -Monitor for mental status changes, respiratory distress or worsening respiratory acidosis while on Ativan for alcohol withdrawal due to history of COPD with increased risks of CO2 retention Acute kidney injury in the setting of dehydration with recent diarrhea Improved after volume expansion Continue to monitor Recent Diarrhea, subsided without intervention at home Patient stated that he developed multiple subsequent of diarrhea of the second vaccination of Covid 19. Patient has a previous history of C. difficile infection a few years ago Patient has had semisolid stool overnight, suspicion for C. difficile low Hypertension Continue home meds Blood pressures under control Dysuria UA negative Most likely secondary to BPH Follow-up with urologist in the outpatient settings BPH -Resume Flomax Active tobacco abuse -Tobacco cessation counseling. Nicotine replacement therapy. Hyponatremia Monitor BMP Patient currently on fluid restriction Elevated troponin Most likely demand superimposed with right heart strain due to bilateral pulmonary emboli First troponin 0.3 second troponin 0.4, 3d troponin 0.4, 4 trop 05 Continue aspirin, anticoagulation Patient denied any chest pain EKG didn't show any acute ST changes Continue to monitor troponin Obesity Complicated Care VS,Fishbone, I+O VS, Fishbone, I+O Laboratory Tests 10/26/20 15:01 10/27/20 06:11 Vital Signs Date Time Temp Pulse Resp B/P (MAP) Pulse Ox O2 Delivery O2 Flow Rate FiO2 10/27/20 08:15 100 126/61 10/27/20 08:00 4.0 10/27/20 08:00 98.2 26 92 High Flow Cannula I&O- Last 24 Hours up to 6 AM 10/27/20 06:00 Intake Total 4043.0 ml Output Total 5950 ml Balance -1907.0 ml PARRISH MEJIA DO Oct 27, 2020 11:14
[2020-10-27] MEDS: FUROSEMIDE 100MG/10ML VIAL (J1940) IV SCH (11:44)
[2020-10-27] MEDS: SPIRONOLACTONE 12.5MG PER 1/2 TABLET PO SCH (11:46)
[2020-10-27 12:37] LABS: FOLATE 7.3 NG/ML
[2020-10-27] MEDS: HEPARIN DRIP 25,000 UNITS in IV 1 EA IV SCH (13:53)
[2020-10-27] MEDS ORDERED: OMEPRAZOLE 20 MG CAP PO ONE (15:40)
[2020-10-27] MEDS: TAMSULOSIN 0.4 MG CAP PO SCH (20:31)
[2020-10-28] VITALS (9 sets, daily range): BP systolic 118–176; BP diastolic 57–110
[2020-10-28] MEDS: PIPERACILLIN/TAZOBACTAM SOD 3.375 GM in D5W MINI-BAG PLUS 50 ML IV SCH ×5 (00:11→23:35)
[2020-10-28] MEDS: FUROSEMIDE 100MG/10ML VIAL (J1940) IV SCH ×3 (00:11→23:35)
[2020-10-28] MEDS: VANCOMYCIN HCL 1,000 MG, VIAL MATE ADAPTER 1 EACH in NS 250 ML IV SCH ×2 (02:08→20:12)
[2020-10-28] MEDS: HEPARIN DRIP 25,000 UNITS in IV 1 EA IV SCH (02:30)
[2020-10-28] MEDS: LEVALBUTEROL 1.25 MG/0.5 ML CONCENTRATE NEB INH SCH ×6 (02:46→23:30)
[2020-10-28 05:37] LABS: HEMATOCRIT 36.7 % (42.0-52.0); HEMOGLOBIN 12.4 g/dl (13.5-17.5); MEAN CORPUSCULAR HEMOGLOBIN 35.1 pg (27.0-33.0); MEAN CORPUSCULAR HGB CONC 33.8 g/dl (32.0-36.5); PLATELET COUNT, AUTOMATED 198 10^3/uL (150-450); RED BLOOD COUNT 3.53 10^6/uL (4.30-6.10); WHITE BLOOD COUNT 6.4 10^3/uL (4.0-10.0)
[2020-10-28 06:05] LABS: CALCIUM LEVEL 7.1 MG/DL (8.5-10.1); CREATININE FOR GFR 1.46 MG/DL (0.70-1.30); GLOMERULAR FILTRATION RATE 53.4 (>56); MAGNESIUM LEVEL 1.4 MG/DL (1.8-2.4); POTASSIUM SERUM 3.6 MEQ/L (3.5-5.1)
[2020-10-28] MEDS: **hydrALAZINE** 10 MG TAB PO SCH ×3 (06:43→23:36)
[2020-10-28] MEDS: ISOSORBIDE DIN (ISORDIL) 10 MG TAB PO SCH ×3 (06:44→23:36)
[2020-10-28] MEDS: LORazepam 2 MG TAB PO PRN (06:49)
[2020-10-28] MEDS: BUDESONIDE 0.5 MG/2 ML INHALATION SUSPENSION INH SCH ×2 (07:02→19:15)
[2020-10-28] MEDS ORDERED: POTASSIUM CHLORIDE 10 MEQ SR TABLET PO ONE (08:00)
[2020-10-28] MEDS ORDERED: MAG SULF 1GM/100ML (MAG RUN) 1 GM in IV 1 EA IV ONE (08:00)
[2020-10-28] MEDS: MULTIVITAMINS/MINERALS THERAP 1 TAB PO SCH (09:00)
--- NOTE | 2020-10-28 10:03 | IPNPDOC ---
Text Note Date of Service The patient was seen on 10/28/20. NOTE Subjective: Patient was agitated overnight, agitation subsided after the dose of lorazepam. Patient continues to have shortness of breath, requires 4 L of oxygen Objective: GENERAL APPEARANCE: In mild distress HEENT: no scleral icterus, plus JVD, EOMI CARDIOVASCULAR: S1S2, tachycardic with heart rate 110 LUNGS: Diminished lung sounds bilaterally ABDOMEN: soft & not tender w palpitation MUSCULOSKELETAL: no cyanosis, no swelling INTEGUMENT: no generalized pallor NEUROLOGICAL: cranial nerve function from 2-12 intact intact, follows commands, speech not dysarthric ASSESSMENT/PLAN: 54-year-old chronic alcoholic with history of hypertension, COPD, not oxygen or steroid dependent, BPH, cataract surgery, chronic back pain with back surgery 15 years ago, presented to [facility] emergency room with shortness of breath for the past week, Dyspnea on exertion, unable to walk more than 30-40 feet without having to stop to take a breath, gait instability, difficulty ambulating due to fatigue and weakness. In the emergency room at [facility], patient was found to be tachycardic sinus rhythm, ventricular rate of 130-140, hypertensive, blood pressure 158/128, hypoxic, requiring 100% nonrebreather, saturating 91%. CT chest showed bilateral pulmonary embolism, groundless opacities. Coronavirus 19 was negative. Patient was wheezing and was given intravenous Solu-Medrol, intravenous Zosyn, nebulizer, Lovenox 1 mg/kg renally dosed at 100 mg subcutaneous 1 dose. Acute hypoxemic respiratory failure Most likely secondary to bilateral pulmonary emboli and left lobe pneumonia superimposed with COPD exacerbation Continue oxygen supplementation via nasal mask. Oxygen requirements decrease to 4 L Continue to monitor blood gas Continue inhalers Continue prednisone 40 mg by mouth Bilateral pulmonary embolism Most likely unprovoked Continue full dose anticoagulation with heparin I discussed with Dr. Scott report from the [facility], there is question for bilateral pulmonary emboli. Preliminary report of echo showed low ejection fraction of 30% left ventricular (LV) dysfunction, high central venous pressure and pulmonary hypertension. Our radiology team reviewed CT scan: Cannot exclude small 3rd order pulmonary emboli to scattered lower lobe and lingular pulmonary arterial branches. Evaluation is limited by motion artifact. 2. Findings suggest pneumonitis and multifocal pneumonia. VQ scan showed low probability for PE Due to equivocal result we continue therapy with full anticoagulation. Will switch heparin to oral targeted anticoagulation Will repeat CTA after stabilization of kidney function Community acquired pneumonia MRSA screen positive Vancomycin IV added to Zosyn IV Await Legionella urine and streptococcal antigen blood culture negative Sputum culture shows many gram-positive cocci Sepsis secondary to community-acquired pneumonia Patient had tachycardia, dyspnea and kidney failure on admission Per calcitonin significantly elevated to 8 Continue broad-spectrum antibiotics Acute systolic CHF/alcoholic cardiomyopathy I discussed with Dr. Scott preliminary report of echo. Patient developed low ejection fraction of 30% most likely secondary to alcohol abuse Cardiology team started carvedilol, isosorbide, hydralazine. DC labetalol Continue Lasix IV Echo report today showed Mildly dilated left ventricle with normal wall thickness and localized septal hypo to akinesis but other left ventricular wall segments moved normally. At least mild impairment of global resting systolic function. At least mildly dilated left atrium with grade 2 LV diastolic dysfunction, and current estimated mean left atrial pressure was mildly increased. Normal right heart chambers sizes and motion with Doppler evidence of mild pulmonary hypertension. IVC size upper limits of normal with suspected adequate respiratory collapse against a significantly elevated central venous pressure. EF45% Discuss the Echo result with Dr Scott, he believes that ejection fraction less than 40% patient most likely will need cardiac catheterization after discharge. Patient developed a good urine output for past 3 days, his weight decreased from 111 kg to 108 kg Acute COPD exacerbation Secondary to community acquired pneumonia and smoking history Continue inhalers, antibiotics and supplemental oxygen Acute alcohol withdrawal / chronic alcohol abuse -Complicating care. -CIWA protocol q4hr. -Monitor for mental status changes, respiratory distress or worsening respiratory acidosis while on Ativan for alcohol withdrawal due to history of COPD with increased risks of CO2 retention Acute kidney injury in the setting of dehydration with recent diarrhea Improved Continue to monitor Recent Diarrhea, subsided without intervention at home Patient stated that he developed multiple subsequent of diarrhea of the second vaccination of Covid 19. Patient has a previous history of C. difficile infection a few years ago Patient has had semisolid stool overnight, suspicion for C. difficile low Hypertension Continue home meds Blood pressures under control Dysuria UA negative Most likely secondary to BPH Follow-up with urologist in the outpatient settings BPH -Continue with Flomax Active tobacco abuse -Tobacco cessation counseling. Nicotine replacement therapy. Hyponatremia Monitor BMP Patient currently on fluid restriction Elevated troponin Most likely demand superimposed with right heart strain due to bilateral p ulmonary emboli First troponin 0.3 second troponin 0.4, 3d troponin 0.4, 4 trop 05 Continue aspirin, anticoagulation Patient denied any chest pain EKG didn't show any acute ST changes Continue to monitor troponin Obesity Complicated Care Electrolytes abnormalities Magnesium and potassium replaced VS,Fishbone, I+O VS, Fishbone, I+O Laboratory Tests 10/28/20 05:10 Vital Signs Date Time Temp Pulse Resp B/P (MAP) Pulse Ox O2 Delivery O2 Flow Rate FiO2 10/28/20 07:29 97.5 80 18 139/70 (93) 96 High Flow Cannula 4.0 I&O- Last 24 Hours up to 6 AM 10/28/20 06:00 Intake Total 3214 ml Output Total 4825 ml Balance -1611 ml PARRISH MEJIA DO Oct 28, 2020 10:03
[2020-10-28] MEDS: FOLIC ACID 1 MG TAB PO SCH (10:45)
[2020-10-28] MEDS: SPIRONOLACTONE 12.5MG PER 1/2 TABLET PO SCH (10:46)
[2020-10-28] MEDS: predniSONE 20 MG TAB PO SCH (10:47)
[2020-10-28] MEDS: OMEPRAZOLE 20 MG CAP PO SCH (10:47)
[2020-10-28] MEDS: CARVedilol 12.5 MG TAB PO SCH ×2 (10:50→20:12)
[2020-10-28] MEDS: ASPIRIN 81 MG CHEW TABLET PO SCH (11:04)
[2020-10-28] MEDS: APIXABAN 5 MG TAB (ELIQUIS) PO SCH ×2 (11:04→20:12)
[2020-10-28] MEDS: MAGNESIUM GLUCONATE 500 MG TAB PO SCH ×2 (11:05→20:12)
[2020-10-28] MEDS: THIAMINE 100 MG TAB PO SCH (11:06)
[2020-10-28] MEDS: LACTOBACILLUS ACIDOPHILUS CAP (BACID) PO SCH ×2 (11:08→20:11)
[2020-10-28 12:45] LABS: HEPATITIS C VIRUS ABY INDEX < 0.0 INDEX (<0.8)
[2020-10-28] MEDS: TAMSULOSIN 0.4 MG CAP PO SCH (20:12)
[2020-10-29] VITALS: BP 137/94
[2020-10-29 04:00] VITALS: BP 134/75
[2020-10-29] MEDS: LEVALBUTEROL 1.25 MG/0.5 ML CONCENTRATE NEB INH SCH ×5 (04:00→19:24)
[2020-10-29 05:41] LABS: HEMATOCRIT 39.4 % (42.0-52.0); HEMOGLOBIN 13.6 g/dl (13.5-17.5); MEAN CORPUSCULAR HEMOGLOBIN 35.4 pg (27.0-33.0); MEAN CORPUSCULAR HGB CONC 34.5 g/dl (32.0-36.5); MEAN CORPUSCULAR VOLUME 102.6 fl (80.0-96.0); PLATELET COUNT, AUTOMATED 228 10^3/uL (150-450); RED BLOOD COUNT 3.84 10^6/uL (4.30-6.10); WHITE BLOOD COUNT 7.1 10^3/uL (4.0-10.0)
[2020-10-29 06:13] LABS: CALCIUM LEVEL 7.6 MG/DL (8.5-10.1); CREATININE FOR GFR 1.43 MG/DL (0.70-1.30); GLOMERULAR FILTRATION RATE 54.7 (>56); MAGNESIUM LEVEL 1.4 MG/DL (1.8-2.4); POTASSIUM SERUM 3.4 MEQ/L (3.5-5.1)
[2020-10-29] MEDS: PIPERACILLIN/TAZOBACTAM SOD 3.375 GM in D5W MINI-BAG PLUS 50 ML IV SCH ×3 (06:24→18:11)
[2020-10-29] MEDS: ISOSORBIDE DIN (ISORDIL) 10 MG TAB PO SCH (06:25)
[2020-10-29] MEDS: **hydrALAZINE** 10 MG TAB PO SCH (06:25)
[2020-10-29 08:00] VITALS: BP 114/68
[2020-10-29] MEDS: BUDESONIDE 0.5 MG/2 ML INHALATION SUSPENSION INH SCH ×2 (08:11→19:24)
[2020-10-29] MEDS: SPIRONOLACTONE 12.5MG PER 1/2 TABLET PO SCH (08:39)
[2020-10-29] MEDS: ASPIRIN 81 MG CHEW TABLET PO SCH (08:40)
[2020-10-29] MEDS: MAGNESIUM GLUCONATE 500 MG TAB PO SCH ×2 (08:40→20:32)
[2020-10-29] MEDS: CARVedilol 12.5 MG TAB PO SCH ×2 (08:40→20:32)
[2020-10-29] MEDS: OMEPRAZOLE 20 MG CAP PO SCH (08:40)
[2020-10-29] MEDS: FOLIC ACID 1 MG TAB PO SCH (08:41)
[2020-10-29] MEDS: MULTIVITAMINS/MINERALS THERAP 1 TAB PO SCH (08:41)
[2020-10-29] MEDS: predniSONE 20 MG TAB PO SCH (08:41)
[2020-10-29] MEDS: APIXABAN 5 MG TAB (ELIQUIS) PO SCH ×2 (08:41→20:32)
[2020-10-29] MEDS: THIAMINE 100 MG TAB PO SCH (08:41)
[2020-10-29] MEDS: LACTOBACILLUS ACIDOPHILUS CAP (BACID) PO SCH ×2 (08:41→18:11)
[2020-10-29] MEDS ORDERED: MAG SULF 1GM/100ML (MAG RUN) 1 GM in IV 1 EA IV SCH ×2 (10:20→10:23)
[2020-10-29] MEDS ORDERED: POTASSIUM CHLORIDE 10 MEQ SR TABLET PO ONE (10:20)
--- NOTE | 2020-10-29 10:37 | IPNPDOC ---
Text Note Date of Service The patient was seen on 10/29/20. NOTE Subjective: Patient is doing better today. He stated he has more energy and less shortness of breath Objective: GENERAL APPEARANCE: In mild distress HEENT: no scleral icterus, plus JVD, EOMI CARDIOVASCULAR: S1S2, tachycardic with heart rate 110 LUNGS: Diminished lung sounds bilaterally ABDOMEN: soft & not tender w palpitation MUSCULOSKELETAL: no cyanosis, no swelling INTEGUMENT: no generalized pallor NEUROLOGICAL: cranial nerve function from 2-12 intact intact, follows commands, speech not dysarthric ASSESSMENT/PLAN: 54-year-old chronic alcoholic with history of hypertension, COPD, not oxygen or steroid dependent, BPH, cataract surgery, chronic back pain with back surgery 15 years ago, presented to [facility] emergency room with shortness of breath for the past week, Dyspnea on exertion, unable to walk more than 30-40 feet without having to stop to take a breath, gait instability, difficulty ambulating due to fatigue and weakness. In the emergency room at [facility], patient was found to be tachycardic sinus rhythm, ventricular rate of 130-140, hypertensive, blood pressure 158/128, hypoxic, requiring 100% nonrebreather, saturating 91%. CT chest showed bilateral pulmonary embolism, groundless opacities. Coronavirus 19 was negative. Patient was wheezing and was given intravenous Solu-Medrol, intravenous Zosyn, nebulizer, Lovenox 1 mg/kg renally dosed at 100 mg subcutaneous 1 dose. Acute hypoxemic respiratory failure Most likely secondary to bilateral pulmonary emboli and left lobe pneumonia superimposed with COPD exacerbation Continue oxygen supplementation via nasal mask. Oxygen requirements decrease to 4 L Continue to monitor blood gas Continue inhalers Continue prednisone 40 mg by mouth Bilateral pulmonary embolism Most likely unprovoked Continue full dose anticoagulation with heparin I discussed with Dr. Scott report from the [facility], there is question for bilateral pulmonary emboli. Preliminary report of echo showed low ejection fraction of 30% left ventricular (LV) dysfunction, high central venous pressure and pulmonary hypertension. Our radiology team reviewed CT scan: Cannot exclude small 3rd order pulmonary emboli to scattered lower lobe and lingular pulmonary arterial branches. Evaluation is limited by motion artifact. 2. Findings suggest pneumonitis and multifocal pneumonia. VQ scan showed low probability for PE Due to equivocal result we continue therapy with full anticoagulation. heparin drip switched to to oral targeted anticoagulation Will repeat CTA after stabilization of kidney function Community acquired pneumonia MRSA screen positive Vancomycin IV added to Zosyn IV Await Legionella urine and streptococcal antigen blood culture negative Sputum culture shows many gram-positive cocci Sepsis secondary to community-acquired pneumonia Patient had tachycardia, dyspnea and kidney failure on admission Per calcitonin significantly elevated to 8 Continue broad-spectrum antibiotics for now Acute systolic CHF/alcoholic cardiomyopathy I discussed with Dr. Scott preliminary report of echo. Patient developed low ejection fraction of 30% most likely secondary to alcohol abuse Cardiology team started carvedilol, isosorbide, hydralazine. DC labetalol Continue Lasix IV Echo report today showed Mildly dilated left ventricle with normal wall thickness and localized septal hypo to akinesis but other left ventricular wall segments moved normally. At least mild impairment of global resting systolic function. At least mildly dilated left atrium with grade 2 LV diastolic dysfun ction, and current estimated mean left atrial pressure was mildly increased. Normal right heart chambers sizes and motion with Doppler evidence of mild pulmonary hypertension. IVC size upper limits of normal with suspected adequate respiratory collapse against a significantly elevated central venous pressure. EF45% Discuss the Echo result with Dr Scott, he believes that ejection fraction less than 40% patient most likely will need cardiac catheterization after discharge. Patient developed a good urine output for past 3 days, his weight decreased from 111 kg to 106 kg Acute COPD exacerbation Secondary to community acquired pneumonia and smoking history Continue inhalers, antibiotics and supplemental oxygen Acute alcohol withdrawal / chronic alcohol abuse -Complicating care. -CIWA protocol PRN Acute kidney injury in the setting of dehydration with recent diarrhea Improved Continue to monitor Recent Diarrhea, subsided without intervention at home Patient stated that he developed multiple subsequent of diarrhea of the second vaccination of Covid 19. Patient has a previous history of C. difficile infection a few years ago Patient had semisolid stool overnight, suspicion for C. difficile low Hypertension Continue home meds Blood pressures under control Dysuria UA negative Most likely secondary to BPH Follow-up with urologist in the outpatient settings BPH -Continue with Flomax Active tobacco abuse -Tobacco cessation counseling. Nicotine replacement therapy. Hyponatremia Monitor BMP Patient currently on fluid restriction Elevated troponin Most likely demand superimposed with right heart strain due to bilateral pulmonary emboli First troponin 0.3 second troponin 0.4, 3d troponin 0.4, 4 trop 05, 0.46 Continue aspirin, anticoagulation Patient denied any chest pain EKG didn't show any acute ST changes Obesity Complicated Care Electrolytes abnormalities Magnesium and potassium replaced VS,Fishbone, I+O VS, Fishbone, I+O Laboratory Tests 10/29/20 05:23 Vital Signs Date Time Temp Pulse Resp B/P (MAP) Pulse Ox O2 Delivery O2 Flow Rate FiO2 10/29/20 08:40 98 114/68 10/29/20 08:00 97.0 20 89 High Flow Cannula 2.0 I&O- Last 24 Hours up to 6 AM 10/29/20 06:00 Intake Total 1080 ml Output Total 3375 ml Balance -2295 ml PARRISH MEJIA DO Oct 29, 2020 10:37
[2020-10-29] MEDS: TORSEMIDE 20 MG TAB PO SCH (11:03)
[2020-10-29 12:00] VITALS: BP 139/75
--- NOTE | 2020-10-29 12:23 | IPN ---
PROGRESS NOTE DATE: 10/29/2020 SUBJECTIVE: Mr. Carter was moved from ICU to PCU. He tells me that he is feeling much improved. He was without oxygen when I walked into the room. He said that he made several laps around PCU without major difficulty. He certainly did not have any chest pain and shortness of breath was minimal if any. OBJECTIVE: VITAL SIGNS: Blood pressure 114/68, heart rate from 70s to 90s, saturation in low 90s on room air. He is afebrile. His fluid balance yesterday was recorded as negative 3 liters. His weight is down to 106.2 kg. GENERAL: He is alert and oriented and appropriate. LUNGS: Clear, much improved air movement compared to two days ago. HEART: Regular rhythm, somewhat muffled heart sounds corresponding to his body habitus. I do not appreciate murmur, rub or gallop. ABDOMEN: Obese but soft. EXTREMITIES: There is no peripheral edema. NEUROLOGICAL: Intact. LABORATORY: Basic metabolic panel: Sodium 136, potassium 3.4, BUN 31, creatinine 1.43, GFR 54, glucose 112. CBC: WBC count 7.1, hemoglobin 13.6, hematocrit 39, platelet count 220,000. ASSESSMENT/PLAN: Mr. Carter is a 54-year-old man who has history of hypertension, smoking and heavy alcohol use but he does not have any history of coronary artery disease. He presented with initial diagnosis of pulmonary embolism which in my opinion is highly questionable. CT angiography performed was of poor quality with motion artifact and I think that subsequent V/Q scan was low probability making the diagnosis questionable. In any case, I believe that it is probably inevitable that we will have to keep him anticoagulated for at 3 months. I believe that the true diagnosis was congestive heart failure. He does have wall motion abnormality on echocardiogram and at least mildly reduced ejection fraction (in my opinion LV dysfunction is worse than officially reported, but quality of images was poor). We changed his medications to provide sufficient diuresis. He initially had acute renal failure most likely related to administration of IV contrast but with improvement of creatinine I believe we can switch him to SISI inhibitor. I am going to replace Isosorbide/Hydralazine with Lisinopril 10 mg tonight. I am also going to replace IV Furosemide to oral Torsemide 40 mg daily. He is already on low dose Spironolactone and maximum dose of Coreg. I do believe that if his condition continues to improve and his renal function holds steady tomorrow, I do not have any objections that he is discharged home. I had a long talk with him today and I again reaffirmed the importance of abstinence from alcohol. 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 It is likely he will need additional evaluation either in the form of nuclear stress test or even cardiac catheterization as there is definite suspicion for underlying coronary artery disease.
[2020-10-29] MEDS: VANCOMYCIN HCL 1,000 MG, VIAL MATE ADAPTER 1 EACH in NS 250 ML IV SCH (13:36)
[2020-10-29 16:00] VITALS: BP 107/67
[2020-10-29 20:00] VITALS: BP 144/83
[2020-10-29] MEDS: TAMSULOSIN 0.4 MG CAP PO SCH (20:32)
[2020-10-30] VITALS: BP 141/95
[2020-10-30] MEDS: LEVALBUTEROL 1.25 MG/0.5 ML CONCENTRATE NEB INH SCH ×3 (00:08→08:28)
[2020-10-30] MEDS: PIPERACILLIN/TAZOBACTAM SOD 3.375 GM in D5W MINI-BAG PLUS 50 ML IV SCH ×2 (00:37→05:33)
[2020-10-30 04:00] VITALS: BP 158/84
[2020-10-30 06:07] LABS: HEMATOCRIT 40.4 % (42.0-52.0); MEAN CORPUSCULAR HEMOGLOBIN 35.7 pg (27.0-33.0); MEAN CORPUSCULAR HGB CONC 34.7 g/dl (32.0-36.5); MEAN CORPUSCULAR VOLUME 103.1 fl (80.0-96.0); PLATELET COUNT, AUTOMATED 278 10^3/uL (150-450); RED BLOOD COUNT 3.92 10^6/uL (4.30-6.10); WHITE BLOOD COUNT 7.5 10^3/uL (4.0-10.0)
[2020-10-30 06:35] LABS: CALCIUM LEVEL 8.4 MG/DL (8.5-10.1); CREATININE FOR GFR 1.55 MG/DL (0.70-1.30); GLOMERULAR FILTRATION RATE 49.8 (>56); MAGNESIUM LEVEL 1.4 MG/DL (1.8-2.4); POTASSIUM SERUM 3.6 MEQ/L (3.5-5.1)
[2020-10-30] MEDS: VANCOMYCIN HCL 1,000 MG, VIAL MATE ADAPTER 1 EACH in NS 250 ML IV SCH (06:40)
[2020-10-30 08:00] VITALS: BP 128/64
[2020-10-30] MEDS: predniSONE 20 MG TAB PO SCH (08:19)
[2020-10-30] MEDS: MULTIVITAMINS/MINERALS THERAP 1 TAB PO SCH (08:19)
[2020-10-30] MEDS: THIAMINE 100 MG TAB PO SCH (08:19)
[2020-10-30] MEDS: OMEPRAZOLE 20 MG CAP PO SCH (08:19)
[2020-10-30] MEDS: TORSEMIDE 20 MG TAB PO SCH (08:20)
[2020-10-30] MEDS: SPIRONOLACTONE 12.5MG PER 1/2 TABLET PO SCH (08:20)
[2020-10-30] MEDS: FOLIC ACID 1 MG TAB PO SCH (08:20)
[2020-10-30] MEDS: LACTOBACILLUS ACIDOPHILUS CAP (BACID) PO SCH (08:20)
[2020-10-30] MEDS: ASPIRIN 81 MG CHEW TABLET PO SCH (08:20)
[2020-10-30] MEDS: MAGNESIUM GLUCONATE 500 MG TAB PO SCH (08:20)
[2020-10-30 08:21] VITALS: BP 128/64
[2020-10-30] MEDS: APIXABAN 5 MG TAB (ELIQUIS) PO SCH (08:21)
[2020-10-30] MEDS: CARVedilol 12.5 MG TAB PO SCH (08:21)
[2020-10-30] MEDS: BUDESONIDE 0.5 MG/2 ML INHALATION SUSPENSION INH SCH (08:29)
[2020-10-30] MEDS ORDERED: MAG SULF 1GM/100ML (MAG RUN) 1 GM in IV 1 EA IV ONE (09:00)
[2020-10-30 09:32] LABS: VANCOMYCIN LEVEL TROUGH 15.6 UG/ML (10.0-20.0)
[2020-10-30] MEDS ORDERED: ASPI81CH8 PO (09:59)
[2020-10-30] MEDS ORDERED: AUGM875T28 PO (09:59)
[2020-10-30] MEDS ORDERED: LISI10TA22 PO (09:59)
[2020-10-30] MEDS ORDERED: TORS20TA2 PO (09:59)
[2020-10-30] MEDS ORDERED: POTA1TAB14 PO (09:59)
[2020-10-30] MEDS ORDERED: MAGN400C PO (09:59)
[2020-10-30] MEDS ORDERED: DOXY-350 PO (09:59)
[2020-10-30] MEDS ORDERED: ALDA25TA2 PO (09:59)
[2020-10-30] MEDS ORDERED: CARV12.5 PO (09:59)
[2020-10-30] MEDS ORDERED: ELIQ5TAB PO (09:59)
[2020-10-30] MEDS ORDERED: POTASSIUM CHLORIDE 10 MEQ SR TABLET PO ONE (10:00)
--- NOTE | 2020-10-30 10:16 | IPN ---
PROGRESS NOTE DATE: 10/30/2020 SUBJECTIVE: Mr. Carter is feeling again better compared to yesterday. He ambulated around the PCU, did not have any problems. He is absolutely ready to go home. He denies any chest discomfort. OBJECTIVE: VITAL SIGNS: Blood pressure 128/64, heart rate has been in the 80s. He is afebrile. Saturation is 92 to 98% on room air. INTAKE AND OUTPUT: Fluid balance yesterday was recorded as about a liter negative. Weight though is unchanged at 106 kg. GENERAL APPEARANCE: He is alert, oriented and appropriate. LUNGS: Clear. Good air movement. HEART: Regular rhythm, somewhat muffled heart sounds corresponding with his body habitus. No murmur or gallop is appreciated. JVP is not high. ABDOMEN: Protuberant but otherwise soft. There is no peripheral edema. NEUROLOGIC: Intact. LABORATORY DATA: CBC reveals a WBC of 7.5, hemoglobin 14, hematocrit is 40.4 and platelet count 278,000. Basic metabolic panel: Sodium is 136, potassium is 3.6, BUN 6, creatinine 1.55 for a GFR of 50 and glucose of 123. ASSESSMENT AND PLAN: Mr. Carter is a 54-year-old man who presented with severe dyspnea. It is not completely clear what was the principal diagnosis. Initially, it was believed to be pulmonary embolism but then the CT angiography was of poor quality and subsequently VQ scan was low probability for pulmonary embolism but I still think it is prudent to continue anticoagulation for at least three months because some uncertainty persists. In my opinion, the leading problem was congestive heart failure and possible some form of response to the vaccination that he received a few days prior. His echocardiogram revealed septal and apical wall motion abnormality and at least mildly and in my opinion more likely moderately reduced left ventricular systolic function. He has been diuresed and he is on appropriate medications. He is currently on Lisinopril 10 plus spironolactone 12.5, plus Coreg 25 twice a day, plus torsemide 40 mg daily. His creatinine is slightly higher today than it was yesterday and I stressed to the patient that he should have a follow-up basic metabolic panel later this week, ideally or Saturday. He says that it should not be any issue with him and he will arrange it with is primary care physician. His is also a nurse. I talked to him about sodium and fluid restrictions and absolute need to avoid alcohol because heavy alcohol consumption prior to this presentation very likely contributed as well. He did have mild troponin elevation with nonspecific repolarization abnormalities on EKG so he will need additional evaluation for underlying coronary artery disease. He follows with results engineer in [place] and he will address that with him.
--- NOTE | 2020-10-30 15:41 | DS.PDOC ---
Discharge Summary General Date of Admission Oct 24, 2020 at 20:50 Date of Discharge 10/30/20 Discharge Summary PROCEDURES PERFORMED DURING STAY: [None]. ADMITTING DIAGNOSES: 1. . DISCHARGE DIAGNOSES: 1. . COMPLICATIONS/CHIEF COMPLAINT: Pneumonia,Pulmonary Embolism. HISTORY OF PRESENT ILLNESS: . HOSPITAL COURSE: . DISCHARGE MEDICATIONS: Please see below. ALLERGIES: Please see below. PHYSICAL EXAMINATION ON DISCHARGE: VITAL SIGNS: Please see below. GENERAL: HEENT: NECK: CARDIOVASCULAR EXAMINATION: RESPIRATORY EXAMINATION: ABDOMINAL EXAMINATION: EXTREMITIES: SKIN: NEUROLOGICAL EXAMINATION: PSYCHIATRIC EXAMINATION: LABORATORY DATA: Please see below. IMAGING: PROGNOSIS: ACTIVITY: [As tolerated]. DIET: DISCHARGE PLAN: DISPOSITION: Home, Self-Care. DISCHARGE INSTRUCTIONS: 1. . ITEMS TO FOLLOWUP ON ON OUTPATIENT: 1. . DISCHARGE CONDITION: [Stable]. TIME SPENT ON DISCHARGE: Greater than minutes. Vital Signs/I&Os Vital Signs Date Time Temp Pulse Resp B/P (MAP) Pulse Ox O2 Delivery O2 Flow Rate FiO2 10/30/20 08:21 87 128/64 10/30/20 08:00 98.2 16 92 Room Air 10/29/20 08:00 2.0 I&O- Last 24 Hours up to 6 AM 10/30/20 06:00 Intake Total 1800 ml Output Total 1900 ml Balance -100 ml Laboratory Data Labs 24H Laboratory Tests 2 10/30/20 05:29: Nucleated Red Blood Cells % (auto) 0.0, Anion Gap 6L, Glomerular Filtration Rate 49.8L, Calcium Level 8.4L, Magnesium Level 1.4L, Vancomycin Level Trough 15.6 CBC/BMP Laboratory Tests 10/30/20 05:29 Microbiology Microbiology 10/25/20 Gram Stain - Final, Complete 10/25/20 Sputum Culture - Final, Complete Yeast Like Organism 10/24/20 Blood Culture - Final, Complete NO GROWTH AFTER 5 DAYS 10/24/20 Blood Culture - Final, Complete NO GROWTH AFTER 5 DAYS Discharge Medications Scheduled Amoxicillin/Potassium Clav (Augmentin 875-125 Tablet) 1 Each Tablet, 1 TAB PO BID Apixaban (Eliquis) 5 Mg Tablet, 5 MG PO BID Aspirin (Children's Aspirin) 81 Mg Tab.chew, 81 MG PO DAILY Budesonide/Formoterol (Symbicort 160-4.5 Mcg Inhaler) 6 Gm Hfa.aer.ad, 2 PUFF INH BID, (Reported) Carvedilol (Carvedilol) 12.5 Mg Tablet, 25 MG PO BID Doxycycline Monohydrate (Doxycycline) 100 Mg Capsule, 1 CAP PO BID Lisinopril (Lisinopril) 10 Mg Tablet, 10 MG PO QHS Magnesium Oxide (Magnesium) 400 Mg Capsule, 400 MG PO DAILY for constipation Pantoprazole Sodium (Pantoprazole Sodium) 40 Mg Tablet.dr, 40 MG PO QPM, (Reported) TAKES BEFORE DINNER Potassium Chloride (Potassium Chloride) 20 Meq Tablet.er, 1 TAB PO DAILY Spironolactone (Aldactone) 25 Mg Tablet, 12.5 MG PO DAILY Tamsulosin HCl (Flomax) 0.4 Mg Capsule, 0.4 MG PO QHS, (Reported) Torsemide (Torsemide) 20 Mg Tablet, 40 MG PO QAM Scheduled PRN Albuterol Sulfate (Proair Hfa) 8.5 Gm Hfa.aer.ad, 2 PUFF INH Q6H PRN for SHORTNESS OF BREATH, (Reported) Allergies Coded Allergies: No Known Allergies (Verified Allergy, Unknown, 10/24/20) PARRISH MEJIA DO Oct 30, 2020 15:41
--- NOTE | 2020-10-30 15:57 | DS.PDOC ---
Discharge Summary General Date of Admission Oct 24, 2020 at 20:50 Date of Discharge 10/30/20 Discharge Summary PROCEDURES PERFORMED DURING STAY: [None]. ADMITTING DIAGNOSES: Acute hypoxemic respiratory failure Bilateral pulmonary embolism Community acquired pneumonia Sepsis secondary to community-acquired pneumonia Acute COPD exacerbation Acute systolic CHF/alcoholic cardiomyopathy Acute alcohol withdrawal / chronic alcohol abuse Acute kidney injury Diarrhea Hypertension Dysuria BPH Active tobacco abuse Hyponatremia Elevated troponin Electrolytes abnormalities Obesity DISCHARGE DIAGNOSES: Acute hypoxemic respiratory failure Bilateral pulmonary embolism Community acquired pneumonia Sepsis secondary to community-acquired pneumonia Acute COPD exacerbation Acute systolic CHF/alcoholic cardiomyopathy Acute alcohol withdrawal / chronic alcohol abuse Acute kidney injury Diarrhea Hypertension Dysuria BPH Active tobacco abuse Hyponatremia Elevated troponin Electrolytes abnormalities Obesity COMPLICATIONS/CHIEF COMPLAINT: Pneumonia,Pulmonary Embolism. HISTORY OF PRESENT ILLNESS: 54-year-old chronic alcoholic with history of hypertension, COPD, not oxygen or steroid dependent, BPH, cataract surgery, chronic back pain with back surgery 15 years ago, presented to [facility] emergency room with shortness of breath for the past week, Dyspnea on exertion, unable to walk more than 30-40 feet without having to stop to take a breath, gait instability, difficulty ambulating due to fatigue and weakness. In the emergency room at [facility], patient was found to be tachycardic sinus rhythm, ventricular rate of 130-140, hypertensive, blood pressure 158/128, hypoxic, requiring 100% nonrebreather, saturating 91%. CT chest showed bilateral pulmonary embolism, groundless opacities. Coronavirus 19 was negative. Patient was wheezing and was given intravenous Solu-Medrol, intravenous Zosyn, nebulizer, Lovenox 1 mg/kg renally dosed at 100 mg subcutaneous 1 dose. HOSPITAL COURSE: During hospital stay following issues addressed Acute hypoxemic respiratory failure Most likely secondary to bilateral pulmonary emboli and left lobe pneumonia superimposed with COPD exacerbation Patient received treatment with oxygen supplementation via nasal mask. Resolved Bilateral pulmonary embolism Most likely unprovoked I discussed with Dr. Scott report from the [facility], there is question for bilateral pulmonary emboli. Preliminary report of echo showed low ejection fraction of 30% left ventricular (LV) dysfunction, high central venous pressure and pulmonary hypertension. Our radiology team reviewed CT scan: Cannot exclude small 3rd order pulmonary emboli to scattered lower lobe and lingular pulmonary arterial branches. Evaluation is limited by motion artifact. 2. Findi ngs suggest pneumonitis and multifocal pneumonia. VQ scan showed low probability for PE Due to equivocal result we continue therapy with full anticoagulation. heparin drip switched to to oral targeted anticoagulation Consider anticoagulation for at least 3 months Community acquired pneumonia MRSA screen positive Vancomycin IV added to Zosyn IV Await Legionella urine and streptococcal antigen blood culture negative Sputum culture shows many gram-positive cocci Continue doxycycline and Augmentin after discharge Sepsis secondary to community-acquired pneumonia Patient had tachycardia, dyspnea and kidney failure on admission Per calcitonin significantly elevated to 8 See above Acute systolic CHF/alcoholic cardiomyopathy I discussed with Dr. Scott preliminary report of echo. Patient developed low ejection fraction of 30% most likely secondary to alcohol abuse Cardiology team started carvedilol, isosorbide, hydralazine. DC labetalol Continue Lasix IV Echo report today showed Mildly dilated left ventricle with normal wall thickness and localized septal hypo to akinesis but other left ventricular wall segments moved normally. At least mild impairment of global resting systolic function. At least mildly dilated left atrium with grade 2 LV diastolic dysfunction, and current estimated mean left atrial pressure was mildly increased. Normal right heart chambers sizes and motion with Doppler evidence of mild pulmonary hypertension. IVC size upper limits of normal with suspected adequate respiratory collapse against a significantly elevated central venous pressure. EF45% Discuss the Echo result with Dr Scott, he believes that ejection fraction less than 40% patient most likely will need cardiac catheterization after discharge. Patient developed a good urine output for past 4 days, his weight decreased from 111 kg to 105 kg He is currently on Lisinopril 10 plus spironolactone 12.5, plus Coreg 25 twice a day, plus torsemide 40 mg daily Acute COPD exacerbation Secondary to community acquired pneumonia and smoking history Continue inhalers, antibiotics and supplemental oxygen Acute alcohol withdrawal / chronic alcohol abuse -Complicating care. -CIWA protocol PRN Acute kidney injury in the setting of dehydration with recent diarrhea Improved Recent Diarrhea, subsided without intervention at home Patient stated that he developed multiple subsequent of diarrhea of the second vaccination of Covid 19. Patient has a previous history of C. difficile infection a few years ago Patient had semisolid stool overnight, suspicion for C. difficile low Hypertension Continue home meds Blood pressures under control Dysuria UA negative Most likely secondary to BPH Follow-up with urologist in the outpatient settings BPH -Continue with Flomax Active tobacco abuse -Tobacco cessation counseling. Nicotine replacement therapy. Elevated troponin Most likely demand superimposed with right heart strain due to bilateral pulmonary emboli First troponin 0.3 second troponin 0.4, 3d troponin 0.4, 4 trop 05, 0.46 Continue aspirin, anticoagulation Patient denied any chest pain EKG didn't show any acute ST changes Patient will need stress test and possible cardiac catheterization in the outpatient settings Obesity Complicated Care DISCHARGE MEDICATIONS: Please see below. ALLERGIES: Please see below. PHYSICAL EXAMINATION ON DISCHARGE: VITAL SIGNS: Please see below. VITAL SIGNS: Blood pressure 128/64, heart rate has been in the 80s. He is afebrile. Saturation is 92 to 98% on room air. INTAKE AND OUTPUT: Fluid balance yesterday was recorded as about a liter negative. Weight though is unchanged at 106 kg. GENERAL APPEARANCE: He is alert, oriented and appropriate. LUNGS: Clear. Good air movement. HEART: Regular rhythm, somewhat muffled heart sounds corresponding with his body habitus. No murmur or gallop is appreciated. JVP is not high. ABDOMEN: Protuberant but otherwise soft. There is no peripheral edema. NEUROLOGIC: Intact. LABORATORY DATA: Please see below. IMAGING: [facility] NAME: TITA HENNING DATE OF : 1965 AGE: 54 SEX: M REPORT #: [id number] ROOM: ICU TECHNOLOGIST: LANDON DOCTOR: PARRISH MEJIA DO Ordered for Date&Time: 10/27/20 0712 cc: [~ rep ct ivnm] Service Date&Time: 10/27/20 0905 This report is in Signed status. If this report is in a DRAFT status it has not yet been reviewed by the radiologist for accuracy. Thank you for having your radiology procedures performed at [facility] RADIOLOGY REPORT Date&Time printed: [~ rep prt dt last] [~ rep prt tm last] Page 2 of 2 [place] [address] RADIOLOGY REPORT This report is in Signed status. If this report is in a DRAFT status it has not yet been reviewed by the radio logist for accuracy. Thank you for having your radiology procedures performed at [facility] RADIOLOGY REPORT Date&Time printed: [~ rep prt dt last] [~ rep prt tm last] Page 1 of 2 INDICATION: PE, CT from [facility]. COMPARISON: None. TECHNIQUE: Outside examination performed on 10/24/2020 using presumed pulmonary embolus technique. Examination made available for reinterpretation on 10/27/2020 FINDINGS: Evaluation is somewhat limited by motion artifact. With respect to pulmonary emboli, small scattered 3rd order pulmonary emboli primarily suggested to the bilateral lower lobes and lingula cannot be excluded as filling defects are identified but may be related to artifact from respiratory motion. Evaluation of the lung [place] demonstrates a diffuse reticulonodular inte rstitial pattern along with areas of consolidation in the lingula and right middle lobe and trace left basilar atelectasis. No pleural effusion. No pneumothorax. Tracheobronchial tree is patent. Further evaluation of the mediastinum demonstrates minimal atherosclerotic changes. Thoracic aorta is without aneurysm or dissection. No cardiomegaly or pericardial effusion. No significant adenopathy noted. Surrounding musculoskeletal structures demonstrate presumed age-related degenerative changes. Limited upper abdomen demonstrates hepatosteatosis and normal bilateral adrenal glands. IMPRESSION: 1. Cannot exclude small 3rd order pulmonary emboli to scattered lower lobe and lingular pulmonary arterial branches. Evaluation is limited by motion artifact. 2. Findings suggest pneumonitis and multifocal pneumonia. Correlation with physical examination and history is required. <Electronically signed by Lucius Almazan > 10/27/20952 DD: Lucius Almazan MD 10/27/20943 DT: TIANNA 10/27/20952 DS: CR 10/27/2094310/27/20943 [~ rep ct labl] PROGNOSIS: Fair ACTIVITY: [As tolerated]. DIET: Cardiac DISPOSITION: 01 Home, Self-Care. DISCHARGE INSTRUCTIONS: Stop drinking alcohol, stop smoking. BMP in 2 days ITEMS TO FOLLOWUP ON ON OUTPATIENT: Follow-up with youth support worker in 7 days, follow up with PCP in 2-3 days DISCHARGE CONDITION: [Stable]. TIME SPENT ON DISCHARGE: 40minutes. Vital Signs/I&Os Vital Signs Date Time Temp Pulse Resp B/P (MAP) Pulse Ox O2 Delivery O2 Flow Rate FiO2 10/30/20 08:21 87 128/64 10/30/20 08:00 98.2 16 92 Room Air 10/29/20 08:00 2.0 I&O- Last 24 Hours up to 6 AM 10/30/20 06:00 Intake Total 1800 ml Output Total 1900 ml Balance -100 ml Laboratory Data Labs 24H Laboratory Tests 2 10/30/20 05:29: Nucleated Red Blood Cells % (auto) 0.0, Anion Gap 6L, Glomerular Filtration Rate 49.8L, Calcium Level 8.4L, Magnesium Level 1.4L, Vancomycin Level Trough 15.6 CBC/BMP Laboratory Tests 10/30/20 05:29 Microbiology Microbiology 10/25/20 Gram Stain - Final, Complete 10/25/20 Sputum Culture - Final, Complete Yeast Like Organism 10/24/20 Blood Culture - Final, Complete NO GROWTH AFTER 5 DAYS 10/24/20 Blood Culture - Final, Complete NO GROWTH AFTER 5 DAYS Discharge Medications Scheduled Amoxicillin/Potassium Clav (Augmentin 875-125 Tablet) 1 Each Tablet, 1 TAB PO BID Apixaban (Eliquis) 5 Mg Tablet, 5 MG PO BID Aspirin (Children's Aspirin) 81 Mg Tab.chew, 81 MG PO DAILY Budesonide/Formoterol (Symbicort 160-4.5 Mcg Inhaler) 6 Gm Hfa.aer.ad, 2 PUFF INH BID, (Reported) Carvedilol (Carvedilol) 12.5 Mg Tablet, 25 MG PO BID Doxycycline Monohydrate (Doxycycline) 100 Mg Capsule, 1 CAP PO BID Lisinopril (Lisinopril) 10 Mg Tablet, 10 MG PO QHS Magnesium Oxide (Magnesium) 400 Mg Capsule, 400 MG PO DAILY for constipation Pantoprazole Sodium (Pantoprazole Sodium) 40 Mg Tablet.dr, 40 MG PO QPM, (Reported) TAKES BEFORE DINNER Potassium Chloride (Potassium Chloride) 20 Meq Tablet.er, 1 TAB PO DAILY Spironolactone (Aldactone) 25 Mg Tablet, 12.5 MG PO DAILY Tamsulosin HCl (Flomax) 0.4 Mg Capsule, 0.4 MG PO QHS, (Reported) Torsemide (Torsemide) 20 Mg Tablet, 40 MG PO QAM Scheduled PRN Albuterol Sulfate (Proair Hfa) 8.5 Gm Hfa.aer.ad, 2 PUFF INH Q6H PRN for SHORTNESS OF BREATH, (Reported) Allergies Coded Allergies: No Known Allergies (Verified Allergy, Unknown, 10/24/20) PARRISH MEJIA DO Oct 30, 2020 15:56
== END 2020-10-30 12:29 | disposition home or self-care (01) | DRG 720 ==
LOC: M ICU 20:50 → EEVIPCON 20:50 → M PCU 10-27 17:44
PROVIDERS: ADMIT Internal Medicine; ATTEND Internal Medicine
DX: A41.9 Sepsis, unspecified organism (principal); J96.01 Acute respiratory failure with hypoxia; I26.99 Other pulmonary embolism without acute cor pulmonale; I50.21 Acute systolic (congestive) heart failure; N17.9 Acute kidney failure, unspecified; J18.9 Pneumonia, unspecified organism; I42.6 Alcoholic cardiomyopathy; J44.1 Chronic obstructive pulmonary disease with (acute) exacerbation; E87.1 Hypo-osmolality and hyponatremia; J44.0 Chronic obstructive pulmonary disease with (acute) lower respiratory infection; F10.239 Alcohol dependence with withdrawal, unspecified; I10 Essential (primary) hypertension; N40.1 Benign prostatic hyperplasia with lower urinary tract symptoms; R30.0 Dysuria; M54.9 Dorsalgia, unspecified; E66.9 Obesity, unspecified; F17.210 Nicotine dependence, cigarettes, uncomplicated; Z98.49 Cataract extraction status, unspecified eye; Z68.34 Body mass index [BMI] 34.0-34.9, adult; Z79.899 Other long term (current) drug therapy